=== PATIENT | male | born 1945 | race Caucasian/White ===

== ENCOUNTER 2019-05-21 15:24 | IRF | payer MEDICARE, OTHER, SELFPAY ==
[2019-05-21 15:35] VITALS: BP 144/71; PULSE 86; RESP 19; TEMP 36.8; O2SAT 100; BMI 24.5
--- NOTE | 2019-05-21 15:59 | ADMGEN ---
This patient, Yung Junior, was admitted to [facility] Room 221-02. Patient/family oriented to hospital policies and general routines including ID bracelet, bed and alarms, visiting hours, pain management, procedures, bathroom and other care routines, personal items, smoking policy, room service/diet, and visiting hours. Valuables list has been completed. Information on how to activate the Rapid Response Team has been discussed. Patient/Family are encouraged to report perceived risks to care and to ask questions if they do not understand what they are told or what they should do.
[2019-05-21 18:33] VITALS: PULSE 86; RESP 19; O2SAT 100
[2019-05-21] MEDS: ACETAMINOPHEN 500 MG TABLET 1000 MG PO ×2 (19:10→23:59)
[2019-05-21] MEDS: TAMSULOSIN HCL 0.4 MG CAPSULE PO (19:11)
[2019-05-21 20:23] VITALS: BP 126/68; PULSE 80; RESP 16; TEMP 37.1; O2SAT 98
[2019-05-21] MEDS: NYSTATIN 100,000 UNITS/ML SUSP 5 ML ORAL.SUSP PO (20:32)
[2019-05-21] MEDS: AMLODIPINE BESYLATE 5 MG TABLET PO (20:32)
[2019-05-21] MEDS: buPROPion HCL SR (12HR) 100 MG TABCR PO (20:32)
[2019-05-22 05:42] LABS: Add Urine Microscopic? YES; Appearance Urine Clear (Clear); Bacteria Urine Trace /hpf; Bilirubin Urine Negative (Negative); Blood Urine Negative (Negative); Color Urine Yellow (Yellow); Glucose Urine UA Negative (Negative); Ketones Urine Trace mg/dL (Negative); Leukocyte Esterase Ur Negative LEU/UL (Negative); Mucus Urine Rare /lpf; Nitrate Urine Negative (Negative); Protein Urine Negative (Negative); RBC Urine 0-2 /hpf (0-2); Specific Grav Ur 1.012 (1.001-1.035); Urobilinogen Urine Negative mg/dL (<2.0); WBC Urine 0-3 /hpf
[2019-05-22 05:43] LABS: Basophils Percent Auto 0.4 % (0.2-1.2); Eosinophils Absolute Auto 0.1 K/mm3 (0-0.3); Eosinophils Percent Auto 1.5 % (0-4.4); Hematocrit 37.6 % (42.0-52.0); Hemoglobin 12.3 g/dL (14.0-18.0); Immature Granulocyte Absolute 0.06 K/mm3 (0.00-0.031); Immature Granulocyte Percent A 0.8 % (0-0.5); Lymphocytes Absolute Auto 0.56 K/mm3 (0.9-3.2); Lymphocytes Percent Auto 7.8 % (18.3-44.2); Mean Corpuscular HGB Conc 32.7 g/dl (32-36); Mean Corpuscular Volume 94.7 fl (80-100); Mean Platelet Volume 11.1 fl (7.4-10.4); Monocytes Absolute Auto 0.8 K/mm3 (0.1-0.6); Monocytes Percent Auto 10.5 % (2.6-8.5); Neutrophils Absolute Auto 5.6 K/mm3 (1.3-6.7); Platelet Count Result 230 k/mm3 (150-375); Red Blood Count 3.97 M/mm3 (4.6-6.20); Red Cell Distribution Width 14.4 % (11.5-14.5); White Blood Count 7.2 K/mm3 (4.5-10.0)
[2019-05-22 05:58] LABS: Blood Urea Nitrogen 28 mg/dL (9-20); Calcium 8.1 mg/dL (8.4-10.2); Carbon Dioxide 24 mmol/L (22-30); Chloride 100 mmol/L (98-107); Estimated CRCL calculation 57 ml/min; Estimated Glomerular Filt Rate 60; Glucose 78 mg/dL (75-110); Potassium 3.5 mmol/L (3.4-5.0); Sodium 135 mmol/L (137-145)
[2019-05-22 06:00] VITALS: BP 135/76; PULSE 87; RESP 18; TEMP 36.4; O2SAT 92
[2019-05-22] MEDS: ACETAMINOPHEN 500 MG TABLET 1000 MG PO ×2 (06:12→12:34)
[2019-05-22] MEDS: LEVOTHYROXINE SODIUM 50 MCG TABLET PO (06:12)
[2019-05-22] MEDS: FUROSEMIDE 20 MG TABLET 60 MG PO (09:46)
[2019-05-22] MEDS: ENOXAPARIN 40 MG/0.4 ML SYRINGE SUB-Q (09:46)
[2019-05-22] MEDS: COLCHICINE 0.6 MG TABLET PO (09:46)
[2019-05-22] MEDS: buPROPion HCL SR (12HR) 100 MG TABCR PO ×2 (09:46→21:34)
[2019-05-22 09:47] VITALS: PULSE 86
[2019-05-22] MEDS: ASPIRIN 81 MG ENTERIC TABLET PO (09:47)
[2019-05-22] MEDS: LOSARTAN POTASSIUM 100 MG TABLET PO (09:47)
[2019-05-22] MEDS: predniSONE 10 MG TABLET PO (09:47)
[2019-05-22] MEDS: CLOPIDOGREL BISULFATE 75 MG TABLET PO (09:47)
[2019-05-22] MEDS: polyethylene glycoL 3350 17 GM POWD.PACK PO (09:47)
[2019-05-22] MEDS: METOPROLOL SUCCINATE EXT REL 100 MG TABCR PO (09:47)
[2019-05-22] MEDS: NYSTATIN 100,000 UNITS/ML SUSP 5 ML ORAL.SUSP PO ×4 (09:47→21:32)
[2019-05-22] MEDS: allopurinoL 50 MG TABLET PO (09:47)
[2019-05-22] MEDS: DOCUSATE SODIUM 100 MG CAPSULE PO (12:34)
[2019-05-22 14:00] VITALS: BP 137/71; PULSE 92; RESP 18; TEMP 36.2; O2SAT 97
--- NOTE | 2019-05-22 15:07 | PC.NURSE ---
Patient states Bosulif is his leukemia medication. He states he will not be taking it while hospitalized. His spouse did not bring in this medication and it is now stopped as per Dr. Cochran and patient.
--- NOTE | 2019-05-22 15:50 | WPDREHABHP ---
H&P: HPI History of Present Illness Chief complaint: Lumbar stenosis with neurogenic claudecation Narrative: Yung Junior is a 73 year old male HISTORY OF PRESENT ILLNESS: The patient's primary rehab impairment category is neurological condition The etiologic diagnosis is lumbar stenosis with neurogenic claudication I saw this patient [id number] on May 22, 2019 at 1:00 p.m. 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 On May 14, 2019 he underwent an L3-L5 segmental spinal instrumentation, L3-L4 synovial cyst and complete right-sided L4-L5 facetectomy and drain placement with doctor Shi. Is spinal precautions are in place. His drains have been removed. His aspirin and Plavix is being held for 1 week postop. Postoperatively the patient has experienced an acute onset of confusion and agitation thought to be secondary to a peripherally stopping his long-term prednisone for 30 years, oral thrush swish and swallow treatment ordered, urinary retention catheter placed and still remain in place for 2 weeks. He was placed back on his home dose of prednisone 10 milligram every morning he is alert and oriented x4 presently he also experienced an acute gout flare and colchicine was added to his home medication of allopurinol Therapy was initiated at the acute care facility and the patient transferred to us from [facility] on May 21, 2019 FALLS OR SURGERIES: The patient has had major surgeries in the 100 days prior to admission. They had falls in the past year. They had falls with injury in the past year. PAST MEDICAL HISTORY: bone marrow transplant complications, coronary artery disease, chronic kidney disease, chronic myelocytic leukemia, deep vein thrombosis, depression, edema, gastroesophageal reflux disease, gout, amaiq-injsfe-cwwt disease, cerebrovascular accident, hiatal hernia, scleroderma, stomach ulcers, hypercholesterolemia, hypertension, hypothyroidism, myalgia, peripheral arterial disease, ptosis right eyelid long-standing, Raynaud phenomenon, spinal stenosis of lumbar region with neurogenic claudication, came in therapy chemotherapy use, status post radiation therapy. PAST SURGICAL HISTORY: Appendectomy, bone marrow transplant 30 years ago, cardiac catheterization, coronary artery disease with angioplasty stent placement, parotidectomy, posterior laminectomy/ decompression lumbar spine prior to present surgery SOCIAL HISTORY: patient lives with his was present at the time of the interview in a 1 level home with the basement. There are 3 steps to enter. He was independent with functional transfers and ambulation prior with no assistive device. He was limited on the amount of time he quit spent due to his lumbar stenosis and neurogenic claudication. He was able to manage by taking frequent rest stops. He did need assistance with buttons due to his gouty tophi. His was present when the screen was performed and she will be available to assist him following inpatient rehab if needed. He reported no falls and he did have a major spinal surgery this admission and also roughly over a year ago FAMILY HISTORY: mother with atrial fibrillation, father with heart disease, father also has hypertension stroke cancer diabetes sister with breast cancer and TTP PRIOR LEVEL OF FUNCTION: Eating was INDEPENDENT Oral Care was INDEPENDENT Toileting Hygiene was INDEPENDENT Shower/Bathing was INDEPENDENT Upper Body Dressing was supervision or touching assistance Lower Body Dressing was supervision or touching ass
--- NOTE | 2019-05-22 16:03 | PHAR ---
Per Dr. Cochran and Patient, home medication was brought in via patient's spouse (Salina). Patient receives Testosterone each Friday, IM. Home medication has been approved by Dr. Cochran. DRUGDEX Evaluations: TESTOSTERONE Regulatory-Status: Schedule III Active-Ingredient: Testosterone Cypionate - 200 MG/ML Excipients: Benzyl Alcohol 9.45 MG/ML Benzyl Benzoate 0.2 ML/ML Cottonseed Oil 560 MG/ML Availability: [place] Yxbwheirw-Qnezltacj-Pqla: 10 ML Vial, package of 1 Contact: [employer] [facility] Product ID: [id number] - 04/08 [facility] Code: [id number] - Androgens Registry Number: [id number] Form: Intramuscular Oil
[2019-05-22] MEDS: LIDOCAINE HCL 2% VISC SOLN 15 ML UDC PO (17:43)
[2019-05-22] MEDS: TAMSULOSIN HCL 0.4 MG CAPSULE PO (17:43)
[2019-05-22] MEDS: AMLODIPINE BESYLATE 5 MG TABLET PO (21:34)
[2019-05-22 21:44] VITALS: BP 144/79; PULSE 82; RESP 16; TEMP 37.4; O2SAT 97
[2019-05-23 06:00] VITALS: BP 137/73; PULSE 88; RESP 16; TEMP 36.6; O2SAT 98
[2019-05-23] MEDS: LEVOTHYROXINE SODIUM 50 MCG TABLET PO ×2 (06:02→06:04)
[2019-05-23] MEDS: NYSTATIN 100,000 UNITS/ML SUSP 5 ML ORAL.SUSP PO ×4 (09:45→20:48)
[2019-05-23] MEDS: ENOXAPARIN 40 MG/0.4 ML SYRINGE SUB-Q (09:46)
[2019-05-23] MEDS: FUROSEMIDE 20 MG TABLET 60 MG PO (09:46)
[2019-05-23] MEDS: DOCUSATE SODIUM 100 MG CAPSULE PO (09:46)
[2019-05-23] MEDS: CLOPIDOGREL BISULFATE 75 MG TABLET PO (09:47)
[2019-05-23] MEDS: COLCHICINE 0.6 MG TABLET PO (09:47)
[2019-05-23] MEDS: allopurinoL 50 MG TABLET PO (09:49)
[2019-05-23] MEDS: ASPIRIN 81 MG ENTERIC TABLET PO (09:49)
[2019-05-23] MEDS: buPROPion HCL SR (12HR) 100 MG TABCR PO ×2 (09:49→21:45)
[2019-05-23 09:50] VITALS: PULSE 90
[2019-05-23] MEDS: LOSARTAN POTASSIUM 100 MG TABLET PO (09:50)
[2019-05-23] MEDS: predniSONE 10 MG TABLET PO (09:50)
[2019-05-23] MEDS: METOPROLOL SUCCINATE EXT REL 100 MG TABCR PO (09:50)
[2019-05-23] MEDS: LIDOCAINE HCL 2% VISC SOLN 15 ML UDC PO ×2 (09:51→13:45)
--- NOTE | 2019-05-23 13:52 | WPDNEURORHBP ---
Subjective Date/time seen: 05/23/19 13:52 Interval history: this 73-year-old gentleman is here because of having had surgery for lumbar stenosis with neurogenic claudication He has multiple medical issues which have been summarized in my initial history and physical exam Today he is complaining of some dizziness which is most likely related to postural hypotension but he does not want to take Norvasc at this time and we will abide by his wish and see what the blood pressure does Review of Systems Constitutional: Constitutional: Reports no additional constitutional complaints Eyes: Eyes: Reports no additional eye complaints ENT: Reports system reviewed and no additional complaints, except as documented Cardiovascular: Cardiovascular: Reports no additional cardiovascular complaints Respiratory: Respiratory: Reports no additional respiratory complaints Gastrointestinal: Gastrointestinal: Reports no additional gastrointestinal complaints Genitourinary: Genitourinary: Reports no additional male genitourinary complaints Musculoskeletal: Musculoskeletal: Reports no additional musculoskeletal complaints Integumentary/Breasts: Skin/Breast: Reports system reviewed and no additional complaints, except as docu Neurologic: Reports system reviewed and no additional complaints, except as documented Psychiatric: Psychiatric: Reports no additional psychiatric complaints Functional Status Ambulation Ability Ability to Ambulate 10 Feet: Contact Guard Ambulation Assistive Devices: Walker, Wheeled Transfers Ability Ability to Transfer In/Out of Chair: Minimum Assistance X 1 Exam Const: General: comfortable and no acute distress HENMT: General nose exam: Normal nares present Mouth: Yes moist mucous membranes Eyes: General: appearance normal, both eyes and all related structures Other: right-sided ptosis remained the same Neck: Neck: supple and no JVD Resp: Effort & Inspection: normal respiratory effort Auscultation: clear to auscultation bilaterally Cardio: Rate: regular rate Rhythm: regular rhythm GI: GI Palp: Yes Soft to palpation Auscultation: normal bowel sounds Skin: General skin exam: normal color and no rashes or lesions noted Other: this inches and at the lumbar area is clean and healthy Neuro: Other: patient's mental status examination is normal cranial nerve examination is normal is strength is symmetrically decreased particularly in the lower extremities along with the sensory deficit depressed reflexes in the lower extremities consistent with the patient's history of lumbar canal stenosis and surgery Extrem: General: normal to inspection Objective Data Vital Signs Vital Signs: Vital Signs - 24 hr 05/22/19 14:00 05/22/19 21:44 05/23/19 06:00 Temperature 36.2 C L 37.4 C 36.6 C Pulse Rate 92 82 88 Respiratory Rate 18 16 16 Blood Pressure 137/71 144/79 H 137/73 Pulse Oximetry 97 97 98 05/23/19 09:50 Temperature Pulse Rate 90 Respiratory Rate Blood Pressure Pulse Oximetry Intake/Output Intake/Output: Intake & Output 05/20/19 05/21/19 05/22/19 05/23/19 23:59 23:59 23:59 23:59 Intake Total 50 600 580 Output Total 1950 1800 Balance 50 1350 -1220 Meds/Results Medications: Active Medications Generic Name Dose Route Start Last Admin Trade Name Freq PRN Reason Stop Dose Admin Acetaminophen 1,000 mg 05/22/19 15:37 Tylenol Tablet PO 06/12/19 23:59 Q6HR PRN Pain Rated 5 or Less Allopurinol 50 mg 05/22/19 09:00 05/23/19 09:49 Zyloprim PO 50 mg DAILY JENY Administration Aspirin 81 mg 05/22/19 09:00 05/23/19 09:49 Aspirin Ec PO 81 mg DAILY JENY Administration Bupropion HCl 100 mg 05/21/19 21:00 05/23/19 09:49 Wellbutrin-Sr (12hr) PO 100 mg Q12HR JENY Administration Clopidogrel Bisulfate 75 mg 05/22/19 09:00 05/23/19 09:47 Plavix PO 75 mg DAILY JENY Administration Colchicine 0.6 mg 05/22/19 09:00 05/23/19 09:47 C
[2019-05-23 14:00] VITALS: BP 121/73; PULSE 88; RESP 18; TEMP 36.7; O2SAT 97
[2019-05-23] MEDS: TAMSULOSIN HCL 0.4 MG CAPSULE PO (18:04)
[2019-05-23 22:00] VITALS: BP 157/77; PULSE 86; RESP 16; TEMP 36.8; O2SAT 99
[2019-05-24 06:00] VITALS: BP 147/77; PULSE 77; RESP 20; TEMP 36.9; O2SAT 95
[2019-05-24] MEDS: ENOXAPARIN 40 MG/0.4 ML SYRINGE SUB-Q (09:57)
[2019-05-24] MEDS: METOPROLOL SUCCINATE EXT REL 100 MG TABCR PO (09:59)
[2019-05-24] MEDS: predniSONE 10 MG TABLET PO (09:59)
[2019-05-24] MEDS: NYSTATIN 100,000 UNITS/ML SUSP 5 ML ORAL.SUSP PO ×4 (09:59→20:29)
[2019-05-24] MEDS: CLOPIDOGREL BISULFATE 75 MG TABLET PO (09:59)
[2019-05-24] MEDS: COLCHICINE 0.6 MG TABLET PO (10:00)
[2019-05-24] MEDS: DOCUSATE SODIUM 100 MG CAPSULE PO (10:00)
[2019-05-24] MEDS: ASPIRIN 81 MG ENTERIC TABLET PO (10:00)
[2019-05-24] MEDS: allopurinoL 50 MG TABLET PO (10:00)
[2019-05-24] MEDS: FUROSEMIDE 20 MG TABLET 60 MG PO (10:00)
[2019-05-24] MEDS: ERGOCALCIFEROL 50,000 UNIT CAPSULE 50000 UNITS PO (10:01)
[2019-05-24] MEDS: buPROPion HCL SR (12HR) 100 MG TABCR PO ×2 (10:01→20:29)
[2019-05-24] MEDS: LOSARTAN POTASSIUM 100 MG TABLET PO (10:01)
--- NOTE | 2019-05-24 11:51 | RPD ---
INDIVIDUALIZED PLAN OF CARE FOR Yung Junior Brief Synthesis of Pre-Admission Screen, Post-Admission Evaluation and Therapy Evaluations: The patient presents to rehab with lumbar stenosis with neurogenic claudication. Comorbidities include status post posterior spinal fusion with instrumentation, excision of right-sided facet synovial cyst, complete facetectomy of right-sided L4-L5, hypertension, acute gout flare, gouty tophi of the right thumb, acute encephalopathy, long-term steroid use, graft versus host disease, coronary artery disease, chronic kidney disease, chronic myelocytic leukemia, edema, gastroesophageal reflux disease, hiatal hernia, hypothyroidism, peripheral artery disease, Raynaud phenomenon, chronic cytoxin use. The patient requires physician services for medical oversight, management of post-op complications in setting of present comorbidities, and pain management. The patient requires nursing services for anticoagulation therapy, DVT prophylactics, infection protection, medication management and education, pressure relief, and wound care. Deficits include:ADLs, Balance, Cognition, Endurance, Mobility, Pain Management, ROM, Safety, Strength, Transfers In School Suspension Aide/Case Management for: Discharge Planning and Patient/Family Counseling Physical Therapy: 5 days per week for 90 minutes. Treatments may include: Therapeutic Exercise, Gait Training, Neuromuscular Re-education, Transfer Training, Community Reintegration, Bed Mobility, Patient/Family Education, Wheelchair Mobility Group Therapy/Concurrent Therapy Rationales: -Improve attention span during functional activities in a distracted environment. -Enhance problem solving and/or adequate judgment skills during functional activities in a distracted environment. -Promote increased safety awareness in a distracted environment to reduce fall risk with functional tasks, transfers, and ambulation to allow a more safe, self-sufficient return to the home environment. -Improve dynamic balance skills to promote safety and independence with functional activities in a distracted environment for maximum gain. Occupational Therapy: 5 days per week for 90 minutes. Treatments may include: Therapeutic Exercise, Therapeutic Activity, Cognitive Training, Self-Care Transfer Training, Community Reintegration, Home Management, Patient/Family Education, Wheelchair Mobility Training, Energy Conservation Training Group Therapy/Concurrent Therapy Rationales: -Allow therapist to observe and teach generalization and carry-over of skills learned in individual therapy. -Enhance problem solving and sequencing skills during therapeutic activities in a distracted environment. -Promote increased safety awareness in a realistic setting to reduce fall risk with functional tasks due to visual and verbal distractions. -Increase functional level with ADLs, ADL transfers and use of adaptive equipment through therapeutic activities with others while promoting safety to allow a more safe, self-sufficient return home. Medical Prognosis: Good Anticipated Length of Stay: 10 days Rehab Goals: Eating Goal: 06-Independent Oral Hygiene Goal: 06-Independent Toileting Hygiene Goal: 06-Independent Shower/Bathe Self Goal: 05-Setup or Clean Up Assistance Upper Body Dressing Goal: 06-Independent Lower Body Dressing Goal: 06-Independent Putting On/Taking Off Footwear Goal: 06-Independent Rolling Left and Right Goal: 04-Supervision or Touching Assistance Sit to Lying Goal: 06-Independent Lying to Sitting on Side of Bed Goal: 06-Independent Sit to Stand Goal: 06-Independent Chair/Mti-nw-Izrdf Transfer Goal: 06-Independent Toilet Transfer Goal: 06-Independent Car Transfer Goal: 06-Independent Walk 10' Goal: 06-Independent Walk 50' with Two Turns Goal: 06-Independent Walk 150' Goal: 06-Independent Walk 10' on Uneven Surface Goal: 06-Independent 1 Step (Curb) Goal: 06-Independent 4 Steps Goal: 06-Independent 12 Steps Goal Score: 06-I
--- NOTE | 2019-05-24 13:22 | PC.NURSE ---
Dr. Nayak notified of pt. orthostatic. Orders received.
[2019-05-24 13:38] VITALS: BMI 24.5
[2019-05-24 14:27] VITALS: BP 95/61
[2019-05-24 14:35] VITALS: BP 137/77; PULSE 80; RESP 16; TEMP 36.4; O2SAT 98
--- NOTE | 2019-05-24 15:35 | PCPTNOTE ---
Yung Junior was evaluated for a wheeled walker on 05/24/2019 by this physical therapist medical library assistant. The wheeled walker will resolve patient's mobility limitations and will be used for ADL's within the home. The patient can safely use the wheeled walker. ?The wheeled walker will resolve the patient?s mobility deficits, including decreased endurance, lower extremity strength and spinal precautions.
[2019-05-24] MEDS: TAMSULOSIN HCL 0.4 MG CAPSULE PO (17:16)
[2019-05-24 21:58] VITALS: BP 128/69; PULSE 84; RESP 16; TEMP 36.8; O2SAT 98
[2019-05-25] MEDS: LEVOTHYROXINE SODIUM 50 MCG TABLET PO (05:33)
[2019-05-25 06:00] VITALS: BP 145/74; PULSE 78; RESP 16; TEMP 36.5; O2SAT 98
[2019-05-25] MEDS: predniSONE 10 MG TABLET PO (09:24)
[2019-05-25] MEDS: allopurinoL 50 MG TABLET PO (09:24)
[2019-05-25] MEDS: buPROPion HCL SR (12HR) 100 MG TABCR PO ×2 (09:24→20:58)
[2019-05-25] MEDS: ASPIRIN 81 MG ENTERIC TABLET PO (09:24)
[2019-05-25] MEDS: CLOPIDOGREL BISULFATE 75 MG TABLET PO (09:24)
[2019-05-25] MEDS: DOCUSATE SODIUM 100 MG CAPSULE PO (09:25)
[2019-05-25] MEDS: COLCHICINE 0.6 MG TABLET PO (09:25)
[2019-05-25] MEDS: NYSTATIN 100,000 UNITS/ML SUSP 5 ML ORAL.SUSP PO ×4 (09:25→20:58)
[2019-05-25] MEDS: ENOXAPARIN 40 MG/0.4 ML SYRINGE SUB-Q (09:25)
[2019-05-25 11:04] VITALS: BP 95/50
--- NOTE | 2019-05-25 12:34 | WPDNEURORHBP ---
Subjective Date/time seen: 05/25/19 12:34 Interval history: the patient is here for lumbar stenosis followed by lumbar surgery but is having postural hypotension and it needs to be addressed apart from that some of his blood pressure medication have been have been held Patient denies any chest pain shortness of breath nausea vomiting He does become dizzy and lightheaded while the therapy is working and postural hypotension has been document Review of Systems Constitutional: Constitutional: Reports no additional constitutional complaints Comments: patient is hypotensive when he stands up Eyes: Eyes: Reports no additional eye complaints ENT: Reports system reviewed and no additional complaints, except as documented Cardiovascular: Cardiovascular: Reports no additional cardiovascular complaints Respiratory: Respiratory: Reports no additional respiratory complaints Gastrointestinal: Gastrointestinal: Reports no additional gastrointestinal complaints Genitourinary: Genitourinary: Reports no additional male genitourinary complaints Musculoskeletal: Musculoskeletal: Reports no additional musculoskeletal complaints Integumentary/Breasts: Skin/Breast: Reports system reviewed and no additional complaints, except as docu Neurologic: Reports system reviewed and no additional complaints, except as documented Psychiatric: Psychiatric: Reports no additional psychiatric complaints Functional Status Ambulation Ability Ability to Ambulate 10 Feet: Contact Guard Ambulation Assistive Devices: Walker, Wheeled Transfers Ability Ability to Transfer In/Out of Chair: Minimum Assistance X 1 Exam Const: General: comfortable and no acute distress HENMT: General nose exam: Normal nares present Mouth: Yes moist mucous membranes Eyes: General: appearance normal, both eyes and all related structures Neck: Neck: supple and no JVD Resp: Effort & Inspection: normal respiratory effort Auscultation: clear to auscultation bilaterally Cardio: Rate: regular rate Rhythm: regular rhythm GI: GI Palp: Yes Soft to palpation Auscultation: normal bowel sounds Skin: General skin exam: normal color and no rashes or lesions noted Neuro: Other: apart from decreased endurance generalized decrease in the strength and also lower extremities weaker than the upper extremities due to lumbar stenosis post surgery for patient's mental status is normal cranial examination is normal and the right ptosis remains the same He does mention that he had some visual issues after having gait temporal lobe infarct which now has not affected his motor strength Extrem: General: normal to inspection Objective Data Vital Signs Vital Signs: Vital Signs - 24 hr 05/24/19 14:27 05/24/19 14:35 05/24/19 21:58 Temperature 36.4 C L 36.8 C Pulse Rate 80 84 Respiratory Rate 16 16 Blood Pressure 95/61 L 137/77 128/69 Pulse Oximetry 98 98 05/25/19 06:00 Temperature 36.5 C Pulse Rate 78 Respiratory Rate 16 Blood Pressure 145/74 H Pulse Oximetry 98 Intake/Output Intake/Output: Intake & Output 05/22/19 05/23/19 05/24/19 05/25/19 23:59 23:59 23:59 23:59 Intake Total 600 1380 1270 240 Output Total 1950 2550 1500 Balance -1350 -1170 -230 240 Meds/Results Medications: Active Medications Generic Name Dose Route Start Last Admin Trade Name Freq PRN Reason Stop Dose Admin Acetaminophen 1,000 mg 05/22/19 15:37 Tylenol Tablet PO 06/12/19 23:59 Q6HR PRN Pain Rated 5 or Less Allopurinol 50 mg 05/22/19 09:00 05/25/19 09:24 Zyloprim PO 50 mg DAILY JENY Administration Aspirin 81 mg 05/22/19 09:00 05/25/19 09:24 Aspirin Ec PO 81 mg DAILY JENY Administration Bupropion HCl 100 mg 05/21/19 21:00 05/25/19 09:24 Wellbutrin-Sr (12hr) PO 100 mg Q12HR JENY Administration Clopidogrel Bisulfate 75 mg 05/22/19 09:00 05/25/19 09:24 Plavix PO 75 mg DAILY JENY Administration Colchicine 0.6 mg 05/22/19 09:00
[2019-05-25] MEDS: MIDODRINE HCL 2.5 MG TABLET PO ×2 (13:34→18:02)
[2019-05-25 14:00] VITALS: BP 104/61; BP 124/67; BP 92/55; PULSE 108; PULSE 120; PULSE 90; RESP 20; TEMP 36.6; O2SAT 96
[2019-05-25 15:00] VITALS: BP 98/62
[2019-05-25] MEDS: TAMSULOSIN HCL 0.4 MG CAPSULE PO (18:40)
[2019-05-25 20:00] VITALS: BP 144/69
[2019-05-25 22:00] VITALS: BP 144/68; PULSE 96; RESP 20; TEMP 37.1; O2SAT 97
[2019-05-26 05:40] VITALS: BP 154/74; PULSE 87; RESP 20; TEMP 37.2; O2SAT 99
[2019-05-26] MEDS: LEVOTHYROXINE SODIUM 50 MCG TABLET PO (05:48)
[2019-05-26 09:35] VITALS: BP 131/67; O2SAT 98
[2019-05-26] MEDS: NYSTATIN 100,000 UNITS/ML SUSP 5 ML ORAL.SUSP PO ×4 (09:59→20:39)
[2019-05-26] MEDS: COLCHICINE 0.6 MG TABLET PO (10:00)
[2019-05-26] MEDS: FUROSEMIDE 20 MG TABLET 60 MG PO (10:00)
[2019-05-26] MEDS: ASPIRIN 81 MG ENTERIC TABLET PO (10:00)
[2019-05-26] MEDS: predniSONE 10 MG TABLET PO (10:00)
[2019-05-26] MEDS: allopurinoL 50 MG TABLET PO (10:00)
[2019-05-26] MEDS: DOCUSATE SODIUM 100 MG CAPSULE PO (10:00)
[2019-05-26] MEDS: ENOXAPARIN 40 MG/0.4 ML SYRINGE SUB-Q (10:01)
[2019-05-26] MEDS: MIDODRINE HCL 2.5 MG TABLET PO ×3 (10:01→17:31)
[2019-05-26] MEDS: buPROPion HCL SR (12HR) 100 MG TABCR PO ×2 (10:01→20:39)
[2019-05-26] MEDS: CLOPIDOGREL BISULFATE 75 MG TABLET PO (10:02)
--- NOTE | 2019-05-26 10:56 | PCOTNOTE ---
Pt. participated in OT treatment session this A.M. at 09:35 Pt. complaining of severe exhaustion having decreased ability with problem solving and word finding during conversation. Pt only able to tolerate 30 minutes of individual OT services at this time. Pt RN notified and aware.
--- NOTE | 2019-05-26 13:53 | WPDNEURORHBP ---
Subjective Date/time seen: 05/26/19 13:53 Interval history: last evening or night the patient had an encephalopathic attitude however earlier today and later this afternoon he is doing fairly well does not offer any specific complaints his blood pressure is decently controlled with the addition of midodrine and he is able to tolerate the therapy quite well Review of Systems Constitutional: Constitutional: Reports no additional constitutional complaints Eyes: Eyes: Reports no additional eye complaints ENT: Reports system reviewed and no additional complaints, except as documented Cardiovascular: Cardiovascular: Reports no additional cardiovascular complaints Respiratory: Respiratory: Reports no additional respiratory complaints Gastrointestinal: Gastrointestinal: Reports no additional gastrointestinal complaints Genitourinary: Genitourinary: Reports no additional male genitourinary complaints Musculoskeletal: Musculoskeletal: Reports no additional musculoskeletal complaints Integumentary/Breasts: Skin/Breast: Reports system reviewed and no additional complaints, except as docu Neurologic: Reports system reviewed and no additional complaints, except as documented Psychiatric: Psychiatric: Reports no additional psychiatric complaints Functional Status Ambulation Ability Ability to Ambulate 10 Feet: Contact Guard Ability to Ambulate 50 Feet With 2 Turns: Contact Guard Ability to Ambulate 150 Feet: Contact Guard Ambulation Assistive Devices: Walker, Wheeled Transfers Ability Ability to Transfer In/Out of Chair: Minimum Assistance X 1 Exam Const: General: comfortable and no acute distress Other: patient does not recall what exactly transpired last night when he was encephalopathic probably HENMT: General nose exam: Normal nares present Mouth: Yes moist mucous membranes Eyes: General: appearance normal, both eyes and all related structures Other: right-sided ptosis remains the same Neck: Neck: supple and no JVD Resp: Effort & Inspection: normal respiratory effort Auscultation: clear to auscultation bilaterally Cardio: Rate: regular rate Rhythm: regular rhythm GI: GI Palp: Yes Soft to palpation Auscultation: normal bowel sounds Urinary Catheter: Urinary Catheter: patent and draining Neuro: Other: patient's strength in the lower extremities in particular is improving and he does not have lot of pain Extrem: General: normal to inspection Objective Data Vital Signs Vital Signs: Vital Signs - 24 hr 05/25/19 14:00 05/25/19 15:00 05/25/19 20:00 Temperature 36.6 C Pulse Rate 120 H Respiratory Rate 20 Blood Pressure 92/55 L 98/62 L 144/69 H Pulse Oximetry 96 05/25/19 22:00 05/26/19 05:40 05/26/19 09:35 Temperature 37.1 C 37.2 C Pulse Rate 96 87 Respiratory Rate 20 20 Blood Pressure 144/68 H 154/74 H 131/67 Pulse Oximetry 97 99 98 Intake/Output Intake/Output: Intake & Output 05/23/19 05/24/19 05/25/19 05/26/19 23:59 23:59 23:59 23:59 Intake Total 1380 1270 1020 820 Output Total 2550 1500 400 750 Balance -1170 -230 620 70 Meds/Results Medications: Active Medications Generic Name Dose Route Start Last Admin Trade Name Freq PRN Reason Stop Dose Admin Acetaminophen 1,000 mg 05/22/19 15:37 Tylenol Tablet PO 06/12/19 23:59 Q6HR PRN Pain Rated 5 or Less Allopurinol 50 mg 05/22/19 09:00 05/26/19 10:00 Zyloprim PO 50 mg DAILY JENY Administration Aspirin 81 mg 05/22/19 09:00 05/26/19 10:00 Aspirin Ec PO 81 mg DAILY JENY Administration Bupropion HCl 100 mg 05/21/19 21:00 05/26/19 10:01 Wellbutrin-Sr (12hr) PO 100 mg Q12HR JENY Administration Clopidogrel Bisulfate 75 mg 05/22/19 09:00 05/26/19 10:02 Plavix PO 75 mg DAILY JENY Administration Colchicine 0.6 mg 05/22/19 09:00 05/26/19 10:00 Colchicine Po PO 06/21/19 09:01 0.6 mg DAILY JENY Administration Dexamethasone 3 mg 05/21/19 20:22
[2019-05-26 14:00] VITALS: BP 96/59; PULSE 122; RESP 20; TEMP 37.9; O2SAT 97
[2019-05-26 14:00] LABS: Add Urine Microscopic? YES; Appearance Urine Cloudy (Clear); Bacteria Urine Trace /hpf; Bilirubin Urine Negative (Negative); Blood Urine 2+ (Negative); Color Urine Yellow (Yellow); Glucose Urine UA Negative (Negative); Ketones Urine Negative (Negative); Leukocyte Esterase Ur 3+ LEU/UL (Negative); Mucus Urine Rare /lpf; Nitrate Urine Positive (Negative); Protein Urine Negative (Negative); RBC Urine 51-75 /hpf (0-2); Specific Grav Ur 1.012 (1.001-1.035); Urobilinogen Urine Negative mg/dL (<2.0); WBC Urine >75 /hpf
--- NOTE | 2019-05-26 15:08 | PCOTNOTE ---
Attempted to see Pt. for P.M. session this afternoon. Pt. refused to participate in any activities this P.M. Pt. is complaining about not feeling well, running a fever and having test ran. Pt. did not receive full scheduled therapy session this date.
--- NOTE | 2019-05-26 15:38 | PCPTNOTE ---
limited physical therapy treatment this date due to patient not feeling well. patient c/o nausea and just feeling bad . patient had low grade temp in pm and decrease response time all day.
[2019-05-26] MEDS: TAMSULOSIN HCL 0.4 MG CAPSULE PO (17:31)
[2019-05-26 21:34] VITALS: BP 137/72; PULSE 102; RESP 22; TEMP 37.3; O2SAT 96
[2019-05-27] VITALS (9 sets, daily range): BP systolic 66–146; BP diastolic 40–80; PULSE 100–127; RESP 19–20; TEMP 37.1–37.2; O2SAT 94–98
[2019-05-27] MEDS: LEVOTHYROXINE SODIUM 50 MCG TABLET PO (09:17)
[2019-05-27] MEDS: allopurinoL 50 MG TABLET PO (09:17)
[2019-05-27] MEDS: predniSONE 10 MG TABLET PO (09:17)
[2019-05-27] MEDS: ASPIRIN 81 MG ENTERIC TABLET PO (09:17)
[2019-05-27] MEDS: DOCUSATE SODIUM 100 MG CAPSULE PO (09:18)
[2019-05-27] MEDS: CLOPIDOGREL BISULFATE 75 MG TABLET PO (09:18)
[2019-05-27] MEDS: COLCHICINE 0.6 MG TABLET PO (09:18)
[2019-05-27] MEDS: buPROPion HCL SR (12HR) 100 MG TABCR PO ×2 (09:18→20:12)
[2019-05-27] MEDS: MIDODRINE HCL 2.5 MG TABLET PO ×2 (09:19→12:41)
[2019-05-27] MEDS: NYSTATIN 100,000 UNITS/ML SUSP 5 ML ORAL.SUSP PO ×4 (09:19→20:12)
[2019-05-27] MEDS: FUROSEMIDE 20 MG TABLET 60 MG PO (09:19)
[2019-05-27] MEDS: ENOXAPARIN 40 MG/0.4 ML SYRINGE SUB-Q (09:19)
--- NOTE | 2019-05-27 11:51 | WPDNEURORHBP ---
Subjective Date/time seen: 05/27/19 11:51 Interval history: patient is feeling relatively better than yesterday he does have evidence of urinary tract infection and does have a Prince catheter which probably should be removed in the next several days after giving him a bladder training and trying him without the Prince catheter catheter prior to discharge is also hypotensive is symptomatic probably necessitating the increase in ProAmatine Review of Systems Constitutional: Constitutional: Reports no additional constitutional complaints Eyes: Eyes: Reports no additional eye complaints ENT: Reports system reviewed and no additional complaints, except as documented Cardiovascular: Cardiovascular: Reports no additional cardiovascular complaints Respiratory: Respiratory: Reports no additional respiratory complaints Gastrointestinal: Gastrointestinal: Reports no additional gastrointestinal complaints Genitourinary: Genitourinary: Reports no additional male genitourinary complaints Musculoskeletal: Musculoskeletal: Reports no additional musculoskeletal complaints Integumentary/Breasts: Skin/Breast: Reports system reviewed and no additional complaints, except as docu Neurologic: Reports system reviewed and no additional complaints, except as documented Psychiatric: Psychiatric: Reports no additional psychiatric complaints Functional Status Ambulation Ability Ability to Ambulate 10 Feet: Contact Guard Ability to Ambulate 50 Feet With 2 Turns: Contact Guard Ability to Ambulate 150 Feet: Contact Guard Ambulation Assistive Devices: Walker, Wheeled Transfers Ability Ability to Transfer In/Out of Chair: Minimum Assistance X 1 Exam Const: General: comfortable and no acute distress HENMT: General nose exam: Normal nares present Mouth: Yes moist mucous membranes Eyes: General: appearance normal, both eyes and all related structures Neck: Neck: supple and no JVD Resp: Effort & Inspection: normal respiratory effort Auscultation: clear to auscultation bilaterally Cardio: Rate: regular rate Rhythm: regular rhythm GI: GI Palp: Yes Soft to palpation Auscultation: normal bowel sounds Urinary Catheter: Urinary Catheter: patent and draining Back/Spine/Pelvis: Other: the incision from the surgery is clean and healthy Skin: General skin exam: normal color and no rashes or lesions noted Neuro: Other: mental status examination is normal cranial examination is normal generalized weakness is improving he is hypotensive and will need adjustment in his requirement of ProAmatine Extrem: General: normal to inspection Objective Data Vital Signs Vital Signs: Vital Signs - 24 hr 05/26/19 14:00 05/26/19 21:34 05/27/19 06:00 Temperature 37.9 C H 37.3 C 37.2 C Pulse Rate 122 H 102 H 100 Respiratory Rate 20 22 H 20 Blood Pressure 96/59 L 137/72 146/71 H Pulse Oximetry 97 96 94 05/27/19 06:19 05/27/19 06:21 Temperature Pulse Rate Respiratory Rate Blood Pressure 137/72 100/80 Pulse Oximetry Intake/Output Intake/Output: Intake & Output 05/24/19 05/25/19 05/26/19 05/27/19 23:59 23:59 23:59 23:59 Intake Total 1270 1020 1060 540 Output Total 7949 357 1223 550 Balance -230 620 -690 -10 Meds/Results Medications: Active Medications Generic Name Dose Route Start Last Admin Trade Name Freq PRN Reason Stop Dose Admin Acetaminophen 1,000 mg 05/22/19 15:37 Tylenol Tablet PO 06/12/19 23:59 Q6HR PRN Pain Rated 5 or Less Allopurinol 50 mg 05/22/19 09:00 05/27/19 09:17 Zyloprim PO 50 mg DAILY JENY Administration Aspirin 81 mg 05/22/19 09:00 05/27/19 09:17 Aspirin Ec PO 81 mg DAILY JENY Administration Bupropion HCl 100 mg 05/21/19 21:00 05/27/19 09:18 Wellbutrin-Sr (12hr) PO 100 mg Q12HR JENY Administration Clopidogrel Bisulfate 75 mg 05/22/19 09:00 05/27/19 09:18 Plavix PO 75 mg DAILY JENY Administration Colchicine 0.6 mg 05/22/19 09:00 05/27/19 0
[2019-05-27] MEDS: MIDODRINE HCL 2.5 MG TABLET 5 MG PO ×2 (14:32→17:56)
--- NOTE | 2019-05-27 16:39 | PCOTNOTE ---
Patient received limited minutes during morning OT session due to drop in blood pressure upon sitting at side of bed and standing at side of bed. Patient was only willing to try a limited amount of activity. DATA OPERATIONS MANAGER present and charted blood pressures. Patient's RN also aware of all findings.
[2019-05-27] MEDS: TAMSULOSIN HCL 0.4 MG CAPSULE PO (17:56)
[2019-05-28] VITALS (11 sets, daily range): BP systolic 72–146; BP diastolic 41–82; PULSE 103–110; RESP 18–20; TEMP 36.6–36.9; O2SAT 98–100
[2019-05-28] MEDS: LEVOTHYROXINE SODIUM 50 MCG TABLET PO (05:35)
--- NOTE | 2019-05-28 08:17 | ECG_ITS ---
Measurements Intervals [place] Rate: 110 P: 44 W[place]: 147 QRS: -65 QRSD: 115 T: 102 QT: 365 QTc: 494 Interpretive Statements SINUS TACHYCARDIA INCOMPLETE RIGHT BUNDLE BRANCH BLOCK LEFT ANTERIOR FASCICULAR BLOCK LEFT VENTRICULAR HYPERTROPHY AND ST-T CHANGE CONSIDER RIGHT VENTRICULAR HYPERTROPHY ANTEROSEPTAL INFARCT, AGE INDETERMINATE ST-T WAVE ABNORMALITY IN LATERAL LEADS- CONSIDER ISCHEMIA ABNORMAL ECG Electronically Signed On 05-28-2019 16:00:40 MACHINE ASSEMBLER by Otilio Beltran D.O.
[2019-05-28] MEDS: ASPIRIN 81 MG ENTERIC TABLET PO (12:34)
[2019-05-28] MEDS: allopurinoL 50 MG TABLET PO (12:34)
[2019-05-28] MEDS: predniSONE 10 MG TABLET PO (12:35)
[2019-05-28] MEDS: CLOPIDOGREL BISULFATE 75 MG TABLET PO (12:35)
[2019-05-28] MEDS: DOCUSATE SODIUM 100 MG CAPSULE PO (12:36)
[2019-05-28] MEDS: buPROPion HCL SR (12HR) 100 MG TABCR PO ×2 (12:36→20:34)
[2019-05-28] MEDS: COLCHICINE 0.6 MG TABLET PO (12:36)
[2019-05-28] MEDS: FUROSEMIDE 20 MG TABLET 60 MG PO (12:36)
[2019-05-28] MEDS: NYSTATIN 100,000 UNITS/ML SUSP 5 ML ORAL.SUSP PO ×4 (12:37→19:51)
[2019-05-28] MEDS: MIDODRINE HCL 2.5 MG TABLET 5 MG PO ×2 (12:37→14:37)
[2019-05-28] MEDS: ENOXAPARIN 40 MG/0.4 ML SYRINGE SUB-Q (12:37)
--- NOTE | 2019-05-28 13:25 | WPDNEURORHBP ---
Subjective Date/time seen: 05/28/19 13:25 Interval history: patient when he is laying in the bed is quite asymptomatic but does become tachycardiac still hypotensive on the 5 milligram of midodrine 3 times a day Denies any chest pain or shortness of breath Review of Systems Constitutional: Constitutional: Reports no additional constitutional complaints Eyes: Eyes: Reports no additional eye complaints ENT: Reports system reviewed and no additional complaints, except as documented Cardiovascular: Cardiovascular: Reports no additional cardiovascular complaints Respiratory: Respiratory: Reports no additional respiratory complaints Gastrointestinal: Gastrointestinal: Reports no additional gastrointestinal complaints Genitourinary: Genitourinary: Reports no additional male genitourinary complaints Musculoskeletal: Musculoskeletal: Reports no additional musculoskeletal complaints Integumentary/Breasts: Skin/Breast: Reports system reviewed and no additional complaints, except as docu Neurologic: Reports system reviewed and no additional complaints, except as documented Psychiatric: Psychiatric: Reports no additional psychiatric complaints Functional Status Ambulation Ability Ability to Ambulate 10 Feet: Contact Guard Ability to Ambulate 50 Feet With 2 Turns: Contact Guard Ability to Ambulate 150 Feet: Contact Guard Ambulation Assistive Devices: Walker, Wheeled Transfers Ability Ability to Transfer In/Out of Chair: Minimum Assistance X 1 Exam Const: General: comfortable and no acute distress HENMT: General nose exam: Normal nares present Mouth: Yes moist mucous membranes Eyes: General: appearance normal, both eyes and all related structures Neck: Neck: supple and no JVD Resp: Effort & Inspection: normal respiratory effort Auscultation: clear to auscultation bilaterally Cardio: Rate: regular rate Rhythm: regular rhythm Other: tachycardic relatively GI: GI Palp: Yes Soft to palpation Auscultation: normal bowel sounds Skin: General skin exam: normal color and no rashes or lesions noted Neuro: Other: patient's overall is doing better however remains hypertensive and does become tachycardic He does not have any focal or lateralizing focal motor deficit Extrem: General: normal to inspection Objective Data Vital Signs Vital Signs: Vital Signs - 24 hr 05/27/19 14:00 05/27/19 14:06 05/27/19 14:10 Temperature 37.1 C Pulse Rate 106 H 113 H 127 H Respiratory Rate 19 Blood Pressure 143/79 H 129/73 112/51 L Pulse Oximetry 96 97 98 05/27/19 22:00 05/28/19 06:00 05/28/19 08:45 Temperature 37.1 C 36.9 C Pulse Rate 100 108 H Respiratory Rate 19 20 Blood Pressure 144/75 H 146/82 H 72/41 L Pulse Oximetry 97 100 05/28/19 11:05 Temperature Pulse Rate Respiratory Rate Blood Pressure 101/57 L Pulse Oximetry Intake/Output Intake/Output: Intake & Output 05/25/19 05/26/19 05/27/19 05/28/19 23:59 23:59 23:59 23:59 Intake Total 1020 1060 2060 120 Output Total 400 1750 1975 Balance 620 -690 85 120 Meds/Results Medications: Active Medications Generic Name Dose Route Start Last Admin Trade Name Freq PRN Reason Stop Dose Admin Acetaminophen 1,000 mg 05/22/19 15:37 Tylenol Tablet PO 06/12/19 23:59 Q6HR PRN Pain Rated 5 or Less Allopurinol 50 mg 05/22/19 09:00 05/28/19 12:34 Zyloprim PO 50 mg DAILY JENY Administration Aspirin 81 mg 05/22/19 09:00 05/28/19 12:34 Aspirin Ec PO 81 mg DAILY JENY Administration Bupropion HCl 100 mg 05/21/19 21:00 05/28/19 12:36 Wellbutrin-Sr (12hr) PO 100 mg Q12HR JENY Administration Clopidogrel Bisulfate 75 mg 05/22/19 09:00 05/28/19 12:35 Plavix PO 75 mg DAILY JENY Administration Colchicine 0.6 mg 05/22/19 09:00 05/28/19 12:36 Colchicine Po PO 06/21/19 09:01 0.6 mg DAILY JENY Administration Dexamethasone 3 mg 05/21/19 20:22 Dexamethasone Intensol PO BID PRN M
--- NOTE | 2019-05-28 14:12 | PCDIET ---
Nutrition Follow-Up Complete: Nutrition Diagnosis: Suboptimal oral intake related to nausea, decreased appetite as evidenced by patient suspecting weight loss and intakes recorded 65% on average. Nutrition Goals: Intakes >50%, supplement acceptance Goals not met. Patient consumed average of 43% of meals since 05/25/19. Reports has not yet tried Thrive Ice Cream (BID), but is agreeable to try it. Reports taking most of the Ensure Enlive supplements, but feels once daily is adequate and does not want to receive more often. Patient c/o orthostatic hypotension causing nausea. States MD will talk with superintendent drilling today. Last recorded weight is 84.4 kg. Recommend obtaining new weight. Bowel Motility: +BM 05/28/19. Labs Reviewed: No new BMP. Meds Noted: Colchicine, Dexamethasone, Colace, Drisdol, Lasix, Miralax, Prednisone Additional Notes: Lower back incision well approximated. No documented pressure sores. Will continue to monitor with same goals. Nutrition Monitoring and Evaluation: Follow up in 5 days.
[2019-05-28] MEDS: ONDANSETRON HCL ODT 4 MG TABLET PO ×2 (14:39→20:35)
--- NOTE | 2019-05-28 15:31 | PM.CNCAR ---
Assessment and Plan Additional Plan 73-year-old gentleman with coronary artery disease recent back surgery longstanding hypertension now experiencing problematic orthostatic hypotension while on rehab. Review with records indicate the reason for this is almost certainly the more aggressive vaso dilator regimen that he is on in the advancement in his diuretics. I would recommend: Reduce furosemide to baseline dosage. I will hold it for now and hopefully resume it if necessary at 20 mg per day as he stabilizes Eliminate losartan Eliminate midodrine Recommend increasing oral fluids Hopefully as his vaso active drugs are back to baseline he will become less orthostatic and I told the patient and his that some degree of systolic hypertension will need to be tolerated because he is unacceptably orthostatic on the current regimen. The patient states he was noticing his systolic blood sugar to be in the 160 range in the last several months and he was somewhat pushing his PCP to advance his antihypertensives. Will follow him with you as he is in the rehab floor but at this point would like to avoid treating him with midodrine while we are giving him several other vasodilators. History of Present Illness History of Present Illness Consult date/time: Date of service: 05/28/19 15:31 Consult reason: hypotension Reason For Visit: Lumbar stenosis with neurogenic claudecation Narrative: This 73-year-old man that up seeing at the request of the rehab staff because of symptomatic, problematic orthostatic hypotension. The patient is followed by Dr. Roe in our practice with a history of coronary artery disease and previous interventional revascularization. Frustratingly I have not been able to pull up her records in the chart for my personal review. In any event the patient states that he has had numerous coronary stents performed but has been recently stable. He states that a ischemia evaluation was conducted with a cardiac catheterization in November of 2018 to clear him for back surgery. Apparently a nuclear stress test was felt to be abnormal on angiogram was done by Dr. Gay at which time he was told he did not have any significant coronary lesions. He was cleared for back surgery which for some reason just happened recently over at [place]. He had a relatively unremarkable hospital course other than according to the chart some transient mental status deteriorations but then was transferred here about a week ago for rehab and ultimately in hopes of going home. It is been noticed while on rehab that it has significant orthostatic vital sign changes any becomes lightheaded and tachycardic upon arising which has made it difficult for him to participate in rehab activities. Other than that he is not having any specific cardiac symptoms. Upon review of the chart it seems readily apparent that he is on additional antihypertensives as well as a higher dose of diuretics that was his baseline. Is to treat this orthostasis his rehab physicians have started him on midodrine. This morning his orthostatic vital signs were still staying significantly abnormal and this afternoon I have received a consult request to see him. He is laying in bed flat is comfortable in this position is visiting with his and offers no other complaints. His current medical regimen consists of amlodipine, metoprolol, losartan and furosemide 60 mg per day. Previously he was not on losartan and his furosemide dosage was previously 20 mg per day. He states that the ARB was added to his regimen within the last month or [address] Michele because of systolic hypertension Review of Systems Constitutional: Constitutional: Reports weakness Eyes: Eyes: Reports no additional eye complaints ENT: Reports system reviewed and no additional complaints, except as documented Cardiovascular: Cardiovascular: Reports as per HPI Comments: Palpitations upon arising Respiratory: Respiratory: Rep
[2019-05-28] MEDS: TAMSULOSIN HCL 0.4 MG CAPSULE PO (18:16)
[2019-05-29 05:28] LABS: Basophils Percent Auto 0.5 % (0.2-1.2); Eosinophils Absolute Auto 0.1 K/mm3 (0-0.3); Eosinophils Percent Auto 1.3 % (0-4.4); Hematocrit 42.1 % (42.0-52.0); Hemoglobin 13.8 g/dL (14.0-18.0); Immature Granulocyte Absolute 0.17 K/mm3 (0.00-0.031); Immature Granulocyte Percent A 4.4 % (0-0.5); Lymphocytes Absolute Auto 0.46 K/mm3 (0.9-3.2); Lymphocytes Percent Auto 11.9 % (18.3-44.2); Mean Corpuscular HGB Conc 32.8 g/dl (32-36); Mean Corpuscular Hemoglobin 30.4 pg (26-34); Mean Corpuscular Volume 92.7 fl (80-100); Mean Platelet Volume 10.1 fl (7.4-10.4); Monocytes Absolute Auto 0.4 K/mm3 (0.1-0.6); Monocytes Percent Auto 11.4 % (2.6-8.5); Neutrophils Absolute Auto 2.7 K/mm3 (1.3-6.7); Neutrophils Percent Auto 70.5 % (45.5-73.1); Platelet Count Result 421 k/mm3 (150-375); Red Blood Count 4.54 M/mm3 (4.6-6.20); Red Cell Distribution Width 14.4 % (11.5-14.5); White Blood Count 3.9 K/mm3 (4.5-10.0)
[2019-05-29 05:45] LABS: Blood Urea Nitrogen 36 mg/dL (9-20); Calcium 7.9 mg/dL (8.4-10.2); Carbon Dioxide 27 mmol/L (22-30); Chloride 88 mmol/L (98-107); Estimated CRCL calculation 43 ml/min; Estimated Glomerular Filt Rate 43; Glucose 137 mg/dL (75-110); Potassium 3.4 mmol/L (3.4-5.0); Sodium 127 mmol/L (137-145)
[2019-05-29] MEDS: LEVOTHYROXINE SODIUM 50 MCG TABLET PO (06:30)
[2019-05-29 08:00] VITALS: BP 114/76; PULSE 120
[2019-05-29] MEDS: predniSONE 10 MG TABLET PO (09:30)
[2019-05-29] MEDS: allopurinoL 50 MG TABLET PO (09:31)
[2019-05-29] MEDS: ASPIRIN 81 MG ENTERIC TABLET PO (09:31)
[2019-05-29] MEDS: DOCUSATE SODIUM 100 MG CAPSULE PO (09:32)
[2019-05-29] MEDS: CLOPIDOGREL BISULFATE 75 MG TABLET PO (09:32)
[2019-05-29] MEDS: buPROPion HCL SR (12HR) 100 MG TABCR PO ×2 (09:32→21:00)
[2019-05-29] MEDS: COLCHICINE 0.6 MG TABLET PO (09:32)
[2019-05-29] MEDS: NYSTATIN 100,000 UNITS/ML SUSP 5 ML ORAL.SUSP PO ×4 (09:33→21:00)
[2019-05-29] MEDS: ENOXAPARIN 40 MG/0.4 ML SYRINGE SUB-Q (09:33)
--- NOTE | 2019-05-29 09:39 | PM.PNCARD ---
Progress Note: A&P Additional Plan orthostatic hypotension, plan hold metoprolol dose, IV fluids normal saline 500 ml, repeat orthosstaic aftefrwards, when systolic BP > 110 can start lower dose of B-clinton. Subjective Date/time seen: 05/29/19 09:39 No acute events Had no syncope but dizzy on standing last night Dry mouth Review of Systems Review of Systems: Narrative: General: good sleep last night, no chills or fevers Cardiac: No chest pain or palpitations or dizziness/syncope Respiratory: No SOB or cough Abdomen: decreased appetite, no nausea or vomiting or diarrhea Hematologic: No bleeding or easy bruises Exam Narrative: Exam Narrative: General: able to lie flat, no acute distress Respiratory: No chest wall tenderness, equal air entry and expansion, CTAB Cardiovascular: The heart has a regular rate and rhythm without murmur, No JVD. Lower extremities: No lower extremity edema. Warm, no skin lesion or bruises. Good capillary refill. Gastrointestinal: The abdomen is soft, nontender and nondistended with active bowel sounds. Psychiatric: Normal affect and co-operative Neurologic: Alert and oriented. No focal deficits. Speech is clear. No facial drooping Objective Data Vital Signs Vital Signs: Vital Signs - 24 hr 05/28/19 11:05 05/28/19 15:25 05/28/19 20:00 Temperature Pulse Rate 110 H Respiratory Rate Blood Pressure 101/57 L 117/72 141/82 H Pulse Oximetry 99 05/28/19 21:06 05/28/19 21:13 05/28/19 21:20 Temperature 36.6 C Pulse Rate 103 H Respiratory Rate 20 Blood Pressure 141/82 H 99/54 L 77/50 L Pulse Oximetry 98 05/28/19 21:38 05/28/19 21:42 Temperature Pulse Rate Respiratory Rate Blood Pressure 99/54 L 77/50 L Pulse Oximetry Intake/Output Intake/Output: Intake & Output 05/26/19 05/27/19 05/28/19 05/29/19 23:59 23:59 23:59 23:59 Intake Total 1060 2060 640 120 Output Total 1750 3731 357 3581 Balance -690 85 40 -980 Meds/Results Medications: Active Medications Generic Name Dose Route Start Last Admin Trade Name Freq PRN Reason Stop Dose Admin Acetaminophen 1,000 mg 05/22/19 15:37 Tylenol Tablet PO 06/12/19 23:59 Q6HR PRN Pain Rated 5 or Less Allopurinol 50 mg 05/22/19 09:00 05/28/19 12:34 Zyloprim PO 50 mg DAILY JENY Administration Aspirin 81 mg 05/22/19 09:00 05/28/19 12:34 Aspirin Ec PO 81 mg DAILY JENY Administration Bupropion HCl 100 mg 05/21/19 21:00 05/28/19 20:34 Wellbutrin-Sr (12hr) PO 100 mg Q12HR JENY Administration Clopidogrel Bisulfate 75 mg 05/22/19 09:00 05/28/19 12:35 Plavix PO 75 mg DAILY JENY Administration Colchicine 0.6 mg 05/22/19 09:00 05/28/19 12:36 Colchicine Po PO 06/21/19 09:01 0.6 mg DAILY JENY Administration Dexamethasone 3 mg 05/21/19 20:22 Dexamethasone Intensol PO BID PRN MOUTH SORES Docusate Sodium 100 mg 05/22/19 09:00 05/28/19 12:36 Colace Cap PO 100 mg DAILY JENY Administration Enoxaparin Sodium 40 mg 05/22/19 09:00 05/28/19 12:37 Lovenox SUB-Q 40 mg DAILY JENY Administration Ergocalciferol 50,000 unit 05/24/19 09:00 05/24/19 10:01 Drisdol PO 50,000 unit Mo@0900 JENY Administration Sodium Chloride 500 mls @ 500 mls/hr 05/29/19 09:02 Normal Saline Iv IV CONT 05/29/19 10:01 .Q1H ONE Levofloxacin 500 mg 05/27/19 09:00 05/28/19 12:37 Levaquin Tab PO 05/31/19 09:01 500 mg DAILY JENY Administration Levothyroxine Sodium 50 mcg 05/22/19 06:30 05/29/19 06:30 Synthroid PO 50 mcg DAILY@0630 JENY Administration Lidocaine HCl 15 ml 05/23/19 13:49 Lidocaine Hcl Viscous 2% PO 06/02/19 13:48 PRN PRN Oral Pain Metoprolol Succinate 100 mg 05/22/19 09:00 05/24/19 09:59 Toprol Xl PO 100 mg DAILY JENY Administration Nystatin 5 ml 05/21/19 21:00 05/28/19 19:51 Nystatin 100,000 Units/Ml Susp PO 5 ml QID JENY Administrati
[2019-05-29] MEDS: SODIUM CHLORIDE 0.9% IV 500 ML IV CONT (09:43)
--- NOTE | 2019-05-29 12:15 | PC.NURSE ---
Orthostatics after 500 NS completed: laying-129/74 P 97, sitting-114/76 P 120 (he was shaking), standing-114/98 P 119 (shaking). Denies dizziness or lightheadedness.
[2019-05-29 13:09] VITALS: PULSE 103
[2019-05-29] MEDS: METOPROLOL SUCCINATE EXT REL 50 MG TABCR PO (13:09)
[2019-05-29] MEDS: SALINE 0.65% NAS SOLN 44 ML BTL 1 SPRAY NASAL (13:09)
[2019-05-29] MEDS: PHARMACIST COMMUNICATION ORDER 1 EACH XX (13:15)
[2019-05-29 14:00] VITALS: BP 138/77; PULSE 100; RESP 18; TEMP 36.6; O2SAT 98
--- NOTE | 2019-05-29 15:53 | PCPTNOTE ---
Full minutes not met this date due to patient refusal to attempt to get out of bed this afternoon.
[2019-05-29] MEDS: TAMSULOSIN HCL 0.4 MG CAPSULE PO (18:10)
[2019-05-29 22:00] VITALS: BP 143/66; PULSE 80; RESP 18; TEMP 36.8; O2SAT 100
[2019-05-30] MEDS: LEVOTHYROXINE SODIUM 50 MCG TABLET PO (05:24)
[2019-05-30 06:00] VITALS: BP 135/73; PULSE 80; RESP 18; TEMP 36.6; O2SAT 97
[2019-05-30] MEDS: ASPIRIN 81 MG ENTERIC TABLET PO (09:26)
[2019-05-30] MEDS: allopurinoL 50 MG TABLET PO (09:26)
[2019-05-30] MEDS: predniSONE 10 MG TABLET PO (09:26)
[2019-05-30] MEDS: ENOXAPARIN 40 MG/0.4 ML SYRINGE SUB-Q (09:27)
[2019-05-30] MEDS: DOCUSATE SODIUM 100 MG CAPSULE PO (09:27)
[2019-05-30] MEDS: CLOPIDOGREL BISULFATE 75 MG TABLET PO (09:27)
[2019-05-30] MEDS: buPROPion HCL SR (12HR) 100 MG TABCR PO ×2 (09:27→21:45)
[2019-05-30] MEDS: COLCHICINE 0.6 MG TABLET PO (09:27)
[2019-05-30 09:28] VITALS: PULSE 80
[2019-05-30] MEDS: NYSTATIN 100,000 UNITS/ML SUSP 5 ML ORAL.SUSP PO ×4 (09:28→21:45)
[2019-05-30] MEDS: METOPROLOL SUCCINATE EXT REL 50 MG TABCR PO (09:28)
--- NOTE | 2019-05-30 12:49 | WPDNEURORHBP ---
Subjective Date/time seen: 05/30/19 12:49 Functional Status Ambulation Ability Ability to Ambulate 10 Feet: Contact Guard Ability to Ambulate 50 Feet With 2 Turns: Contact Guard Ability to Ambulate 150 Feet: Contact Guard Ambulation Assistive Devices: Walker, Wheeled Transfers Ability Ability to Transfer In/Out of Chair: Minimum Assistance X 1 Exam Narrative: Exam Narrative: recieved fluids yesterday for orthostatis feeling better stil cocerned about low bp Const: General: cooperative, healthy appearing, comfortable and no acute distress Neck: Neck: full ROM Resp: Effort & Inspection: normal respiratory effort Auscultation: clear to auscultation bilaterally Cardio: Rate: regular rate Rhythm: regular rhythm GI: Auscultation: normal bowel sounds Skin: General skin exam: no rashes or lesions noted Neuro: General: patient oriented x3 and CN's II-XI intact bilaterally Speech: normal speech Gait exam (Neuro): Normal gait present Motor exam (neuro): 5/5 motor strength present throughout Psych: Appearance: grossly normal Objective Data Vital Signs Vital Signs: Vital Signs - 24 hr 05/29/19 13:09 05/29/19 14:00 05/29/19 22:00 Temperature 36.6 C 36.8 C Pulse Rate 103 H 100 80 Respiratory Rate 18 18 Blood Pressure 138/77 143/66 H Pulse Oximetry 98 100 05/30/19 06:00 05/30/19 09:28 Temperature 36.6 C Pulse Rate 80 80 Respiratory Rate 18 Blood Pressure 135/73 Pulse Oximetry 97 Intake/Output Intake/Output: Intake & Output 05/27/19 05/28/19 05/29/19 05/30/19 23:59 23:59 23:59 23:59 Intake Total 0 640 760 910 Output Total 2584 479 4980 850 Balance 85 40 -990 60 Meds/Results Medications: Active Medications Generic Name Dose Route Start Last Admin Trade Name Freq PRN Reason Stop Dose Admin Acetaminophen 1,000 mg 05/22/19 15:37 Tylenol Tablet PO 06/12/19 23:59 Q6HR PRN Pain Rated 5 or Less Allopurinol 50 mg 05/22/19 09:00 05/30/19 09:26 Zyloprim PO 50 mg DAILY JENY Administration Aspirin 81 mg 05/22/19 09:00 05/30/19 09:26 Aspirin Ec PO 81 mg DAILY JENY Administration Bupropion HCl 100 mg 05/21/19 21:00 05/30/19 09:27 Wellbutrin-Sr (12hr) PO 100 mg Q12HR JENY Administration Clopidogrel Bisulfate 75 mg 05/22/19 09:00 05/30/19 09:27 Plavix PO 75 mg DAILY JENY Administration Colchicine 0.6 mg 05/22/19 09:00 05/30/19 09:27 Colchicine Po PO 06/21/19 09:01 0.6 mg DAILY JENY Administration Dexamethasone 3 mg 05/21/19 20:22 Dexamethasone Intensol PO BID PRN MOUTH SORES Docusate Sodium 100 mg 05/22/19 09:00 05/30/19 09:27 Colace Cap PO 100 mg DAILY [facility] Administration Enoxaparin Sodium 40 mg 05/22/19 09:00 05/30/19 09:27 Lovenox SUB-Q 40 mg DAILY [facility] Administration Ergocalciferol 50,000 unit 05/24/19 09:00 05/24/19 10:01 Drisdol PO 50,000 unit Mo@0900 [facility] Administration Levofloxacin 500 mg 05/27/19 09:00 05/30/19 09:27 Levaquin Tab PO 05/31/19 09:01 500 mg DAILY [facility] Administration Levothyroxine Sodium 50 mcg 05/22/19 06:30 05/30/19 05:24 Synthroid PO 50 mcg DAILY@0630 JENY Administration Lidocaine HCl 15 ml 05/23/19 13:49 Lidocaine Hcl Viscous 2% PO 06/02/19 13:48 PRN PRN Oral Pain Metoprolol Succinate 50 mg 05/29/19 12:30 05/30/19 09:28 Toprol Xl PO 50 mg QAM JENY Administration Nystatin 5 ml 05/21/19 21:00 05/30/19 12:47 Nystatin 100,000 Units/Ml Susp PO 5 ml QID [facility] Administration Ondansetron HCl 4 mg 05/27/19 15:22 05/28/19 20:35 Zofran Odt PO 4 mg Q6H PRN Administration Nausea And Vomiting Polyethylene Glycol 17 gm 05/22/19 10:26 Miralax PO PRN PRN Constipation Prednisone 10 mg 05/22/19 08:00 05/30/19 09:26 Prednisone PO 10 mg DAILY@0800 JENY Administration Simethicone 80 mg 05/21/19 17:11 Mylicon PO QID PRN Abdominal Distention So
--- NOTE | 2019-05-30 13:45 | PCPTNOTE ---
Full minutes not met this date. Patient unable to tolerate sitting activities at this time due to BP
[2019-05-30 14:00] VITALS: BP 110/69; RESP 18; TEMP 36.7; O2SAT 100
[2019-05-30 14:23] VITALS: BP 109/72; BP 91/61
--- NOTE | 2019-05-30 16:00 | PM.PNCARD ---
Progress Note: A&P Additional Plan orthostatic hypotension, likely related to medication and hypovolemia from poor intake, Hx of CAD, plan decrease metoprolol dose to 25 mg before adding midodrine, cont holding Losartan and amlodipine since supine BP is in normal range. Cont ASA Subjective Date/time seen: 05/30/19 16:00 Interval history: no acute events still feels weak Review of Systems Review of Systems: Narrative: General: good sleep last night, no chills or fevers Cardiac: No chest pain or palpitations or dizziness/syncope Respiratory: No SOB or cough Abdomen: poor appetite, no nausea or vomiting or diarrhea Hematologic: No bleeding or easy bruises Exam Narrative: Exam Narrative: General: able to lie flat, no acute distress Respiratory: No chest wall tenderness, equal air entry and expansion, CTAB Cardiovascular: The heart has a regular rate and rhythm without murmur, No JVD. Lower extremities: No lower extremity edema. Warm, no skin lesion or bruises. Good capillary refill. Gastrointestinal: The abdomen is soft, nontender and nondistended with active bowel sounds. Psychiatric: Normal affect and co-operative Neurologic: Alert and oriented. No focal deficits. Speech is clear. No facial drooping. Objective Data Vital Signs Vital Signs: Vital Signs - 24 hr 05/29/19 22:00 05/30/19 06:00 05/30/19 09:28 Temperature 36.8 C 36.6 C Pulse Rate 80 80 80 Respiratory Rate 18 18 Blood Pressure 143/66 H 135/73 Pulse Oximetry 100 97 05/30/19 14:00 05/30/19 14:23 Temperature 36.7 C Pulse Rate Respiratory Rate 18 Blood Pressure 110/69 109/72 Pulse Oximetry 100 Intake/Output Intake/Output: Intake & Output 05/27/19 05/28/19 05/29/19 05/30/19 23:59 23:59 23:59 23:59 Intake Total 2060 021 163 3082 Output Total 6682 810 1606 850 Balance 85 40 -990 160 Meds/Results Medications: Active Medications Generic Name Dose Route Start Last Admin Trade Name Freq PRN Reason Stop Dose Admin Acetaminophen 1,000 mg 05/22/19 15:37 Tylenol Tablet PO 06/12/19 23:59 Q6HR PRN Pain Rated 5 or Less Allopurinol 50 mg 05/22/19 09:00 05/30/19 09:26 Zyloprim PO 50 mg DAILY JENY Administration Aspirin 81 mg 05/22/19 09:00 05/30/19 09:26 Aspirin Ec PO 81 mg DAILY [facility] Administration Bupropion HCl 100 mg 05/21/19 21:00 05/30/19 09:27 Wellbutrin-Sr (12hr) PO 100 mg Q12HR JENY Administration Clopidogrel Bisulfate 75 mg 05/22/19 09:00 05/30/19 09:27 Plavix PO 75 mg DAILY [facility] Administration Colchicine 0.6 mg 05/22/19 09:00 05/30/19 09:27 Colchicine Po PO 06/21/19 09:01 0.6 mg DAILY [facility] Administration Dexamethasone 3 mg 05/21/19 20:22 Dexamethasone Intensol PO BID PRN MOUTH SORES Docusate Sodium 100 mg 05/22/19 09:00 05/30/19 09:27 Colace Cap PO 100 mg DAILY [facility] Administration Enoxaparin Sodium 40 mg 05/22/19 09:00 05/30/19 09:27 Lovenox SUB-Q 40 mg DAILY [facility] Administration Ergocalciferol 50,000 unit 05/24/19 09:00 05/24/19 10:01 Drisdol PO 50,000 unit Mo@0900 [facility] Administration Levofloxacin 500 mg 05/27/19 09:00 05/30/19 09:27 Levaquin Tab PO 05/31/19 09:01 500 mg DAILY [facility] Administration Levothyroxine Sodium 50 mcg 05/22/19 06:30 05/30/19 05:24 Synthroid PO 50 mcg DAILY@0630 [facility] Administration Lidocaine HCl 15 ml 05/23/19 13:49 Lidocaine Hcl Viscous 2% PO 06/02/19 13:48 PRN PRN Oral Pain Metoprolol Succinate 50 mg 05/29/19 12:30 05/30/19 09:28 Toprol Xl PO 50 mg QAM [facility] Administration Nystatin 5 ml 05/21/19 21:00 05/30/19 12:47 Nystatin 100,000 Units/Ml Susp PO 5 ml QID JENY Administration Ondansetron HCl 4 mg 05/27/19 15:22 05/28/19 20:35 Zofran Odt PO 4 mg Q6H PRN Administration Nausea And Vomiting Polyethylene Glycol 17 gm 01/25/20 10:26 Miralax PO PRN PRN Constipation Predn
[2019-05-30] MEDS: TAMSULOSIN HCL 0.4 MG CAPSULE PO (18:10)
[2019-05-30 22:21] VITALS: BP 133/73; PULSE 85; RESP 18; TEMP 36.9; O2SAT 95
[2019-05-31] VITALS (11 sets, daily range): BP systolic 84–144; BP diastolic 49–77; PULSE 77–96; RESP 16–20; TEMP 36.4–36.6; O2SAT 90–98
[2019-05-31] MEDS: LEVOTHYROXINE SODIUM 50 MCG TABLET PO (06:33)
[2019-05-31] MEDS: predniSONE 10 MG TABLET PO (09:06)
[2019-05-31] MEDS: buPROPion HCL SR (12HR) 100 MG TABCR PO ×2 (09:07→20:53)
[2019-05-31] MEDS: allopurinoL 50 MG TABLET PO (09:07)
[2019-05-31] MEDS: ASPIRIN 81 MG ENTERIC TABLET PO (09:07)
[2019-05-31] MEDS: CLOPIDOGREL BISULFATE 75 MG TABLET PO (09:07)
[2019-05-31] MEDS: COLCHICINE 0.6 MG TABLET PO (09:07)
[2019-05-31] MEDS: ENOXAPARIN 40 MG/0.4 ML SYRINGE SUB-Q (09:08)
[2019-05-31] MEDS: ERGOCALCIFEROL 50,000 UNIT CAPSULE 50000 UNITS PO (09:08)
[2019-05-31] MEDS: DOCUSATE SODIUM 100 MG CAPSULE PO (09:08)
[2019-05-31] MEDS: NYSTATIN 100,000 UNITS/ML SUSP 5 ML ORAL.SUSP PO ×4 (09:09→20:53)
[2019-05-31] MEDS: SALINE 0.65% NAS SOLN 44 ML BTL 1 SPRAY NASAL (09:10)
[2019-05-31] MEDS: METOPROLOL SUCCINATE EXT REL 50 MG TABCR PO (09:12)
--- NOTE | 2019-05-31 11:25 | PCOTNOTE ---
Attempted to see Pt. for A.M. treatment session. Pt. was unable to tolerate full scheduled therapy time this A.M. Pt. c/o flucuating blood pressures, declining several therapeutic activities. Pt. required several supine to sitting edge of the bed, and then lying back down. Pt. refused getting out of bed. Pt. did verbalize he needed to use the restroom but would decline to do so. Pt. did particiapte in UE exercises sitting edge of bed and supine. Pt. was able to participate in 40 minutes of functional therapeutic needs this session. Will attempt again this date to fullfill therapeutic time.
--- NOTE | 2019-05-31 16:28 | PM.PNCARD ---
Progress Note: A&P Assessment and Plan (1) Orthostatic hypotension: Code(s): I95.1 - Orthostatic hypotension Status: Acute Assessment and Plan: Improved after fluids and holding medications. Still orthostatic. Blood pressure at 6:00 a.m. lying 144/69 with heart rate of 71. Sitting 96/59 with a heart rate of 71 and standing 94/69 with a heart rate of 77. States does still have dizziness when stands but denied any lightheadedness or dizziness when he sat up in the chair for 40 minutes this afternoon. Decrease Metoprolol to 25 mg daily. Due to his coronary disease I do not want to completely discontinue beta-clinton. Continue to hold amlodipine, furosemide and losartan. (2) Tachycardia: Code(s): R00.0 - Tachycardia, unspecified Status: Acute Assessment and Plan: Tachycardia resolved with fluids. Encouraged to drink at least 2 L of fluid per day. EF was 55% at the time of his cardiac catheterization last fall. (3) CKD (chronic kidney disease): Code(s): N18.9 - Chronic kidney disease, unspecified Status: Acute Assessment and Plan: Stable (4) CAD (coronary artery disease), [place] coronary artery: Code(s): I25.10 - Atherosclerotic heart disease of [place] coronary artery without angina pectoris Status: Acute Assessment and Plan: No chest discomfort. Continue aspirin and clopidogrel. Additional Plan Plan discussed with Dr. French [id number] Time Spent With Patient Time with patient: less than 15 minutes Subjective Date/time seen: 05/31/19 16:28 Interval history: Follow-up for: Orthostatic hypotension and tachycardia. Date of service: 05/31/2019 Subjective: Able to sit up in the chair for 40 minutes today. Back still gets tired when it is not supported. Denied chest discomfort or shortness of breath. Lightheaded if stands. Was not lightheaded while sitting up in the chair. Review of Systems Constitutional: Constitutional: Reports weakness Eyes: Eyes: Reports no additional eye complaints ENT: Reports Normal hearing present and Reports dizziness Cardiovascular: Cardiovascular: Denies chest pain at rest, Denies chest pain with activity, Denies leg edema, Reports lightheadedness (With standing), Denies palpitations, Denies dyspnea and Denies dyspnea on exertion Respiratory: Respiratory: Denies cough and Denies dyspnea on exertion Gastrointestinal: Gastrointestinal: Denies abdominal pain and Denies nausea Integumentary/Breasts: Skin/Breast: Denies rash Neurologic: Reports dizziness (With standing) and Reports weakness Hematologic/Lymphatic: Hematologic/Lymphatic: Denies easy bruising Exam Const: General: cooperative, comfortable, no acute distress and ill appearing Nutritional Appearance: thin Orientation/consciousness: patient oriented x3 HENMT: Mouth: Yes dry mucous membranes Eyes: Sclera: sclerae normal Pupils: Equal, round and reactive pupils present Neck: Neck: supple and no JVD Resp: Effort & Inspection: normal respiratory effort Auscultation: clear to auscultation bilaterally Cardio: Rate: regular rate Rhythm: regular rhythm Heart sounds: Murmur heart sound present systolic soft and at the left sternal border (Without radiation) GI: Auscultation: normal bowel sounds Urinary Catheter: Urinary Catheter: patent and draining and urine clear Skin: General skin exam: normal color Neuro: Cranial nerves: Yes Equal, round and reactive pupils present Extrem: General: normal to inspection Psych: Appearance: grossly normal Speech and movement: Normal speech and movement present Objective Data Vital Signs Vital Signs: Vital Signs - 24 hr 05/30/19 22:21 05/31/19 06:00 05/31/19 06:05 Temperature 36.9 C 36.6 C Pulse Rate 85 79 Respiratory Rate 18 18 Blood Pressure 133/73 144/69 H 96/59 L Pulse Oximetry 95 97 05/31/19 06:08 05/31/19 08:00 05/31/19 09:01 Temperature 36.6 C Pulse Rate 91 Respiratory Ra
[2019-05-31] MEDS: TAMSULOSIN HCL 0.4 MG CAPSULE PO (17:28)
[2019-06-01] VITALS (8 sets, daily range): BP systolic 90–133; BP diastolic 57–84; PULSE 66–96; RESP 18–20; TEMP 36.3–36.8; O2SAT 96–98
[2019-06-01] MEDS: LEVOTHYROXINE SODIUM 50 MCG TABLET PO (05:52)
[2019-06-01] MEDS: SALINE 0.65% NAS SOLN 44 ML BTL 1 SPRAY NASAL (09:47)
[2019-06-01] MEDS: predniSONE 10 MG TABLET PO (09:48)
[2019-06-01] MEDS: ASPIRIN 81 MG ENTERIC TABLET PO (09:49)
[2019-06-01] MEDS: allopurinoL 50 MG TABLET PO (09:49)
[2019-06-01] MEDS: COLCHICINE 0.6 MG TABLET PO (09:51)
[2019-06-01] MEDS: CLOPIDOGREL BISULFATE 75 MG TABLET PO (09:51)
[2019-06-01] MEDS: DOCUSATE SODIUM 100 MG CAPSULE PO (09:52)
[2019-06-01] MEDS: ENOXAPARIN 40 MG/0.4 ML SYRINGE SUB-Q (09:52)
[2019-06-01] MEDS: METOPROLOL SUCCINATE EXT REL 25 MG TABCR PO (09:55)
--- NOTE | 2019-06-01 10:28 | PM.PNCARD ---
Progress Note: A&P Assessment and Plan (1) Orthostatic hypotension: Code(s): I95.1 - Orthostatic hypotension Status: Acute Assessment and Plan: Improved with IV fluids and holding furosemide, losartan and decreasing Metoprolol succinate. Blood pressure this morning 133/70 with a heart rate of 91 supine, 112/66 with a heart rate of 81 sitting. Lightheaded when stands. Encouraging p.o. fluids. Metoprolol succinate at 25 mg daily. Monitor blood pressure this afternoon. (2) Tachycardia: Code(s): R00.0 - Tachycardia, unspecified Status: Acute Assessment and Plan: Tachycardia resolved with fluids. Encouraged to drink at least 2 L of fluid per day. EF was 55% at the time of his cardiac catheterization last fall. (3) CKD (chronic kidney disease): Code(s): N18.9 - Chronic kidney disease, unspecified Status: Acute Assessment and Plan: Stable (4) CAD (coronary artery disease), [place] coronary artery: Code(s): I25.10 - Atherosclerotic heart disease of [place] coronary artery without angina pectoris Status: Acute Assessment and Plan: No chest discomfort. Continue aspirin and clopidogrel. Additional Plan Anticipating discharge on Friday. Plan discussed with Dr. Fernandez 1030 06/01/2019 Subjective Date/time seen: 06/01/19 10:28 Interval history: Follow-up for: Orthostatic hypotension and tachycardia. Date of service: 06/01/2019 Subjective: No shortness of breath or chest discomfort. Still needs some work on stamina. Lightheaded when stood today. Review of Systems Constitutional: Constitutional: Reports weakness Eyes: Eyes: Reports no additional eye complaints ENT: Reports Normal hearing present and Reports dizziness (With standing) Cardiovascular: Cardiovascular: Denies chest pain at rest, Denies chest pain with activity, Denies leg edema, Reports lightheadedness (With standing), Denies palpitations, Denies dyspnea and Denies dyspnea on exertion Respiratory: Respiratory: Denies cough, Denies dyspnea and Denies dyspnea on exertion Gastrointestinal: Gastrointestinal: Denies abdominal pain and Denies nausea Musculoskeletal: Musculoskeletal: Reports no additional musculoskeletal complaints Integumentary/Breasts: Skin/Breast: Denies rash Neurologic: Reports Normal hearing present, Reports dizziness (With standing) and Reports weakness Endocrine: Endocrine: Reports no additional endocrine complaints and Denies palpitations Hematologic/Lymphatic: Hematologic/Lymphatic: Denies easy bruising Exam Const: General: cooperative, comfortable, no acute distress and ill appearing Nutritional Appearance: thin Orientation/consciousness: patient oriented x3 HENMT: Mouth: Yes dry mucous membranes Eyes: Sclera: sclerae normal Pupils: Equal, round and reactive pupils present Neck: Neck: supple and no JVD Thyroid: thyroid normal Resp: Effort & Inspection: normal respiratory effort Auscultation: clear to auscultation bilaterally Cardio: Rate: regular rate Rhythm: regular rhythm Heart sounds: Murmur heart sound present systolic soft and at the left sternal border (Without radiation) GI: Auscultation: normal bowel sounds Urinary Catheter: Urinary Catheter: patent and draining and urine clear Skin: General skin exam: normal color Neuro: General: patient oriented x3 Cranial nerves: Yes Equal, round and reactive pupils present and Yes Normal hearing present Extrem: General: normal to inspection Psych: Appearance: grossly normal Speech and movement: Normal speech and movement present Objective Data Vital Signs Vital Signs: Vital Signs - 24 hr 05/31/19 11:00 05/31/19 13:00 05/31/19 14:00 Temperature 36.6 C Pulse Rate 87 77 Respiratory Rate 16 Blood Pressure 90/50 L 93/64 L 124/64 Pulse Oximetry 90 05/31/19 20:21 05/31
[2019-06-01] MEDS: buPROPion HCL SR (12HR) 100 MG TABCR PO (10:39)
--- NOTE | 2019-06-01 12:28 | WPDNEURORHBP ---
Subjective Date/time seen: 06/01/19 12:28 Interval history: the case was discussed in the presence of the family member in fact his we will do the bladder training and hopefully discontinue the [place] prior to discharge date of June 04, 2019 Patient is doing fairly well at least in the past 24 to 48 hours while sitting and maintaining his blood pressure without any syncopal episode no chest pain no shortness of breath no headache nausea vomiting or fevers Review of Systems Constitutional: Constitutional: Reports no additional constitutional complaints Eyes: Eyes: Reports no additional eye complaints ENT: Reports system reviewed and no additional complaints, except as documented Cardiovascular: Cardiovascular: Reports no additional cardiovascular complaints Respiratory: Respiratory: Reports no additional respiratory complaints Gastrointestinal: Gastrointestinal: Reports no additional gastrointestinal complaints Genitourinary: Genitourinary: Reports no additional male genitourinary complaints Musculoskeletal: Musculoskeletal: Reports no additional musculoskeletal complaints Integumentary/Breasts: Skin/Breast: Reports system reviewed and no additional complaints, except as docu Neurologic: Comments: patient's is strength and daughters is improving and if it was not because of postural hypotension he will be doing 5 better than what is already doing Psychiatric: Psychiatric: Reports no additional psychiatric complaints Functional Status Ambulation Ability Ability to Ambulate 10 Feet: Contact Guard Ability to Ambulate 50 Feet With 2 Turns: Contact Guard Ability to Ambulate 150 Feet: Contact Guard Ambulation Assistive Devices: Walker, Wheeled Transfers Ability Ability to Transfer In/Out of Chair: Standby Assistance Exam Const: General: comfortable and no acute distress HENMT: General nose exam: Normal nares present Mouth: Yes moist mucous membranes Eyes: General: appearance normal, both eyes and all related structures Neck: Neck: supple and no JVD Resp: Effort & Inspection: normal respiratory effort Auscultation: clear to auscultation bilaterally Cardio: Rate: regular rate Rhythm: regular rhythm GI: GI Palp: Yes Soft to palpation Auscultation: normal bowel sounds Urinary Catheter: Urinary Catheter: patent and draining Skin: General skin exam: normal color and no rashes or lesions noted Neuro: Other: patient's mental status is fairly decent and within the normal range, likewise the cranial examination is also fairly decent and within the normal range is strength is improving endurance is improving Extrem: General: normal to inspection Objective Data Vital Signs Vital Signs: Vital Signs - 24 hr 05/31/19 13:00 05/31/19 14:00 05/31/19 20:21 Temperature 36.6 C 36.5 C Pulse Rate 87 77 86 Respiratory Rate 16 19 Blood Pressure 93/64 L 124/64 133/77 Pulse Oximetry 90 98 05/31/19 22:00 06/01/19 06:00 06/01/19 07:37 Temperature 36.4 C L 36.4 C L Pulse Rate 96 96 Respiratory Rate 20 20 Blood Pressure 133/70 133/70 133/70 Pulse Oximetry 98 98 06/01/19 07:38 06/01/19 08:00 06/01/19 09:55 Temperature Pulse Rate 96 Respiratory Rate Blood Pressure 112/66 90/69 L Pulse Oximetry Intake/Output Intake/Output: Intake & Output 05/29/19 05/30/19 05/31/19 06/01/19 23:59 23:59 23:59 23:59 Intake Total 760 1570 1210 640 Output Total 1750 1500 1600 1650 Balance -990 70 -390 -1010 Meds/Results Medications: Active Medications Generic Name Dose Route Start Last Admin Trade Name Freq PRN Reason Stop Dose Admin Acetaminophen 1,000 mg 05/22/19 15:37 Tylenol Tablet PO 06/12/19 23:59 Q6HR PRN Pain Rated 5 or Less Allopurinol 50 mg 05/22/19 09:00 06/01/19 09:49 Zyloprim PO 50 mg DAILY JENY Administration Aspirin 81 mg 05/22/19 09:00 06/01/19 09:49 Aspirin Ec PO 81 mg DAILY [facility]ENY Administration Bupropion HCl 100 mg 05/21/19 21:00
[2019-06-01] MEDS: TAMSULOSIN HCL 0.4 MG CAPSULE PO (20:45)
[2019-06-02] MEDS: LEVOTHYROXINE SODIUM 50 MCG TABLET PO (05:30)
[2019-06-02 05:59] VITALS: BP 131/34; PULSE 77; RESP 18; TEMP 36.8; O2SAT 98
[2019-06-02] MEDS: ONDANSETRON HCL ODT 4 MG TABLET PO (09:13)
[2019-06-02] MEDS: buPROPion HCL SR (12HR) 100 MG TABCR 200 MG PO (09:15)
[2019-06-02] MEDS: ASPIRIN 81 MG ENTERIC TABLET PO (09:17)
[2019-06-02] MEDS: allopurinoL 50 MG TABLET PO (09:17)
[2019-06-02] MEDS: DOCUSATE SODIUM 100 MG CAPSULE PO (09:17)
[2019-06-02] MEDS: CLOPIDOGREL BISULFATE 75 MG TABLET PO (09:17)
[2019-06-02] MEDS: ENOXAPARIN 40 MG/0.4 ML SYRINGE SUB-Q (09:17)
[2019-06-02] MEDS: COLCHICINE 0.6 MG TABLET PO (09:17)
[2019-06-02 09:18] VITALS: PULSE 84
[2019-06-02] MEDS: METOPROLOL SUCCINATE EXT REL 25 MG TABCR PO (09:18)
[2019-06-02] MEDS: predniSONE 10 MG TABLET PO (10:20)
--- NOTE | 2019-06-02 12:03 | WPDNEURORHBP ---
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 however he also has underlying chronic myeloid leukemia status post transplant Today his complaining of little tiredness and fatigue however overall status is improving denies any chest pain or shortness of breath headache nausea vomiting fevers chills or sore throat Review of Systems Constitutional: Constitutional: Reports no additional constitutional complaints Eyes: Eyes: Reports no additional eye complaints ENT: Reports system reviewed and no additional complaints, except as documented Cardiovascular: Cardiovascular: Reports no additional cardiovascular complaints Respiratory: Respiratory: Reports no additional respiratory complaints Gastrointestinal: Gastrointestinal: Reports no additional gastrointestinal complaints Genitourinary: Genitourinary: Reports no additional male genitourinary complaints Musculoskeletal: Musculoskeletal: Reports no additional musculoskeletal complaints Integumentary/Breasts: Skin/Breast: Reports system reviewed and no additional complaints, except as docu Neurologic: Reports system reviewed and no additional complaints, except as documented Psychiatric: Psychiatric: Reports no additional psychiatric complaints Functional Status Ambulation Ability Ability to Ambulate 10 Feet: Contact Guard Ability to Ambulate 50 Feet With 2 Turns: Contact Guard Ability to Ambulate 150 Feet: Contact Guard Ambulation Assistive Devices: Walker, Wheeled Transfers Ability Ability to Transfer In/Out of Chair: Standby Assistance Exam Const: General: comfortable and no acute distress HENMT: General nose exam: Normal nares present Mouth: Yes moist mucous membranes Eyes: General: appearance normal, both eyes and all related structures Neck: Neck: supple and no JVD Resp: Effort & Inspection: normal respiratory effort Auscultation: clear to auscultation bilaterally Cardio: Rate: regular rate Rhythm: regular rhythm GI: GI Palp: Yes Soft to palpation Auscultation: normal bowel sounds Skin: General skin exam: normal color and no rashes or lesions noted Neuro: Other: patient does have occasional sundowning however during the day remains alert and well oriented time place and person apart from having generalized weakness and fatigue and tiredness related to multiple medical issues the patient does not have any lateralizing focal motor or sensory deficit He does have evidence of neuropathy of long-standing multiple medical issues he has suffered from Overall he is improving and engage in therapy Objective Data Vital Signs Vital Signs: Vital Signs - 24 hr 06/01/19 14:00 06/01/19 22:00 06/02/19 05:59 Temperature 36.3 C L 36.8 C 36.8 C Pulse Rate 66 77 77 Respiratory Rate 18 18 18 Blood Pressure 106/84 131/74 131/34 L Pulse Oximetry 96 98 98 06/02/19 09:18 Temperature Pulse Rate 84 Respiratory Rate Blood Pressure Pulse Oximetry Intake/Output Intake/Output: Intake & Output 05/30/19 05/31/19 06/01/19 06/02/19 23:59 23:59 23:59 23:59 Intake Total 1570 1210 1160 540 Output Total 1500 1600 2100 550 Balance 70 -390 -940 -10 Meds/Results Medications: Active Medications Generic Name Dose Route Start Last Admin Trade Name Freq PRN Reason Stop Dose Admin Acetaminophen 1,000 mg 05/22/19 15:37 Tylenol Tablet PO 06/12/19 23:59 Q6HR PRN Pain Rated 5 or Less Allopurinol 50 mg 05/22/19 09:00 06/02/19 09:17 Zyloprim PO 50 mg DAILY JENY Administration Aspirin 81 mg 05/22/19 09:00 06/02/19 09:17 Aspirin Ec PO 81 mg DAILY [facility] Administration Bupropion HCl 200 mg 06/02/19 09:00 06/02/19 09:15 Wellbutrin-Sr (12hr) PO 200 mg DAILY JENY Administration Clopidogrel Bisulfate 75 mg 05/22/19 09:00 06/02/19 09:17 Plavix PO 75 mg DAILY [facility] Administration Colchicine 0.6 mg 05/22/19 09:
--- NOTE | 2019-06-02 12:40 | PCDIET ---
Nutrition Follow-Up Complete: Suboptimal oral intake related to nausea, decreased appetite as evidenced by patient suspecting weight loss and intakes recorded 65% on average. Intakes >50%, supplement acceptance Goal not met. Patient's average meal consumption is 44.9% since 05/28. Has been drinking the Ensure Enlive but not the Thrive ice cream. Nutrition recommendation: Current diet order appropriate. Recommend keeping Enlive 1x/day. Patient requests to stop order of Thrive. Last recorded weight is 84.4 kg. Bowel Motility:+BM 05/29 Labs Reviewed:Na(127), K(3.4), Glu (137), Hgb (13.8) Meds Noted: Zofran, miralax, Colace, Lovenox Additional Notes: Patient states that nausea has lessened since admission but is still present. Pt and state appetite is low but is has increased since admission. Pt's has been brining Muscle Milk to the patient everyday to help increase caloric intake and meet needs; reason why they request Thrive stop being sent. Follow up in 5 days.
--- NOTE | 2019-06-02 13:35 | PCNSR ---
On 06/02/19, the student, Kelsey Barrett, provided care and completed [employer] documentation on this patient. I have reviewed the student's documentation and agree with the findings. Recommend K+ replacement as needed/indicated.
[2019-06-02] MEDS: NYSTATIN 100,000 UNITS/ML SUSP 5 ML ORAL.SUSP PO ×3 (13:52→20:04)
[2019-06-02 14:00] VITALS: BP 164/76; PULSE 81; RESP 19; TEMP 36.6; O2SAT 100
[2019-06-02 15:14] VITALS: BP 122/85; BP 96/69; PULSE 104; PULSE 112
[2019-06-02] MEDS: TAMSULOSIN HCL 0.4 MG CAPSULE PO (17:56)
[2019-06-02 20:00] VITALS: BP 144/68
[2019-06-02 21:28] VITALS: BP 144/68; PULSE 47; RESP 18; TEMP 36.8; O2SAT 93
[2019-06-03] VITALS (9 sets, daily range): BP systolic 75–153; BP diastolic 51–75; PULSE 80–99; RESP 18; TEMP 36.4–36.8; O2SAT 91–97
[2019-06-03] MEDS: LEVOTHYROXINE SODIUM 50 MCG TABLET PO (06:01)
[2019-06-03] MEDS: predniSONE 10 MG TABLET PO (08:35)
[2019-06-03] MEDS: allopurinoL 50 MG TABLET PO (08:35)
[2019-06-03] MEDS: ASPIRIN 81 MG ENTERIC TABLET PO (08:35)
[2019-06-03] MEDS: buPROPion HCL SR (12HR) 100 MG TABCR 200 MG PO (08:36)
[2019-06-03] MEDS: DOCUSATE SODIUM 100 MG CAPSULE PO (08:36)
[2019-06-03] MEDS: CLOPIDOGREL BISULFATE 75 MG TABLET PO (08:36)
[2019-06-03] MEDS: COLCHICINE 0.6 MG TABLET PO (08:36)
[2019-06-03] MEDS: ENOXAPARIN 40 MG/0.4 ML SYRINGE SUB-Q (08:37)
[2019-06-03] MEDS: METOPROLOL SUCCINATE EXT REL 25 MG TABCR PO (08:37)
[2019-06-03] MEDS: NYSTATIN 100,000 UNITS/ML SUSP 5 ML ORAL.SUSP PO ×4 (08:37→20:06)
[2019-06-03] MEDS: polyethylene glycoL 3350 17 GM POWD.PACK PO (09:03)
--- NOTE | 2019-06-03 10:43 | WPDNEURORHBP ---
Subjective Date/time seen: 06/03/19 10:43 Interval history: patient is doing very well in the rehab he is recuperating after having had surgery for lumbar canal stenosis with neurogenic claudication he is much better and ready to be discharged tomorrow the catheter has been removed this morning we will see whether not he would require it again or else he starts urinating on his own Patient denies any headache fever chills sore throat nausea or vomiting Review of Systems Constitutional: Constitutional: Reports no additional constitutional complaints Eyes: Eyes: Reports no additional eye complaints ENT: Reports system reviewed and no additional complaints, except as documented Cardiovascular: Cardiovascular: Reports no additional cardiovascular complaints Respiratory: Respiratory: Reports no additional respiratory complaints Gastrointestinal: Gastrointestinal: Reports no additional gastrointestinal complaints Genitourinary: Genitourinary: Reports no additional male genitourinary complaints Musculoskeletal: Musculoskeletal: Reports no additional musculoskeletal complaints Integumentary/Breasts: Skin/Breast: Reports system reviewed and no additional complaints, except as docu Neurologic: Reports system reviewed and no additional complaints, except as documented Psychiatric: Psychiatric: Reports no additional psychiatric complaints Functional Status Ambulation Ability Ability to Ambulate 10 Feet: Standby Assistance Ability to Ambulate 50 Feet With 2 Turns: Standby Assistance Ability to Ambulate 150 Feet: Contact Guard Ambulation Assistive Devices: Walker, Wheeled Transfers Ability Ability to Transfer In/Out of Chair: Independent Exam Const: General: comfortable and no acute distress HENMT: General nose exam: Normal nares present Mouth: Yes moist mucous membranes Eyes: General: appearance normal, both eyes and all related structures Neck: Neck: supple and no JVD Resp: Effort & Inspection: normal respiratory effort Auscultation: clear to auscultation bilaterally Cardio: Rate: regular rate Rhythm: regular rhythm GI: GI Palp: Yes Soft to palpation Auscultation: normal bowel sounds Back/Spine/Pelvis: Other: the incision and the back and spine in August is clean and healthy Skin: General skin exam: normal color and no rashes or lesions noted Neuro: Other: patient's strength has generally improved to a degree that he will be able to be discharged tomorrow with a follow-up appointment with the surgeons and the primary care physician Extrem: General: normal to inspection Objective Data Vital Signs Vital Signs: Vital Signs - 24 hr 06/02/19 14:00 06/02/19 15:14 06/02/19 20:00 Temperature 36.6 C Pulse Rate 81 112 H Respiratory Rate 19 Blood Pressure 164/76 H 96/69 L 144/68 H Pulse Oximetry 100 06/02/19 21:28 06/03/19 06:00 06/03/19 08:37 Temperature 36.8 C 36.8 C Pulse Rate 47 L 85 85 Respiratory Rate 18 18 Blood Pressure 144/68 H 131/71 Pulse Oximetry 93 93 Intake/Output Intake/Output: Intake & Output 05/31/19 06/01/19 06/02/19 06/03/19 23:59 23:59 23:59 23:59 Intake Total 1210 1160 1860 790 Output Total 1600 2100 1075 350 Balance -390 -940 785 440 Meds/Results Medications: Active Medications Generic Name Dose Route Start Last Admin Trade Name Freq PRN Reason Stop Dose Admin Acetaminophen 1,000 mg 05/22/19 15:37 Tylenol Tablet PO 06/12/19 23:59 Q6HR PRN Pain Rated 5 or Less Allopurinol 50 mg 05/22/19 09:00 06/03/19 08:35 Zyloprim PO 50 mg DAILY JENY Administration Aspirin 81 mg 05/22/19 09:00 06/03/19 08:35 Aspirin Ec PO 81 mg DAILY JENY Administration Bupropion HCl 200 mg 06/02/19 09:00 06/03/19 08:36 Wellbutrin-Sr (12hr) PO 200 mg DAILY JENY Administration Clopidogrel Bisulfate 75 mg 05/22/19 09:00 06/03/19 08:36 Plavix PO 75 mg DAILY JENY Administration Colchicine 0.6 mg 05/22/19 09:00 06/03/19 08:
--- NOTE | 2019-06-03 12:10 | PM.PNCARD ---
Progress Note: A&P Assessment and Plan (1) Orthostatic hypotension: Code(s): I95.1 - Orthostatic hypotension Status: Acute Assessment and Plan: Improved with fluids and stopping furosemide and valsartan. Metoprolol succinate decreased to 25 mg daily. Better p.o. intake. Still symptomatic but this is also improved. Would not decrease Metoprolol any further. Support hose recommended. Needs to have at least 30-40 mmHg (extra firm) (2) Tachycardia: Code(s): R00.0 - Tachycardia, unspecified Status: Acute Assessment and Plan: Tachycardia resolved with fluids. Encouraged to drink at least 2 L of fluid per day. EF was 55% at the time of his cardiac catheterization last fall. (3) CKD (chronic kidney disease): Code(s): N18.9 - Chronic kidney disease, unspecified Status: Acute Assessment and Plan: Stable Check BMP and CBC in the morning. (4) CAD (coronary artery disease), [place] coronary artery: Code(s): I25.10 - Atherosclerotic heart disease of [place] coronary artery without angina pectoris Status: Acute Assessment and Plan: No chest discomfort. Continue aspirin and clopidogrel. Additional Plan Plan discussed with Dr. Fernandez 1215 06/03/2019 Subjective Date/time seen: 06/03/19 12:10 Interval history: Follow-up for: Orthostatic hypotension and tachycardia. Date of service: 06/03/2019 Subjective: Just back from physical therapy. Vision is a little foggy. Feels needs to lay down. Blood pressure improving. One hundred eight systolic with walking. Did stairs. Up and down 4 steps. Systolic blood pressure did drop. Review of Systems Constitutional: Constitutional: Reports weakness Eyes: Eyes: Reports blurry vision ENT: Reports Normal hearing present and Reports dizziness (With standing) Cardiovascular: Cardiovascular: Denies chest pain at rest, Denies chest pain with activity, Denies leg edema, Reports lightheadedness (With standing), Denies palpitations, Denies dyspnea and Denies dyspnea on exertion Respiratory: Respiratory: Denies cough, Denies dyspnea and Denies dyspnea on exertion Gastrointestinal: Gastrointestinal: Denies abdominal pain and Denies nausea Musculoskeletal: Musculoskeletal: Reports no additional musculoskeletal complaints Integumentary/Breasts: Skin/Breast: Denies rash Neurologic: Reports Normal hearing present, Reports dizziness (With standing) and Reports weakness Endocrine: Endocrine: Reports no additional endocrine complaints and Denies palpitations Hematologic/Lymphatic: Hematologic/Lymphatic: Denies easy bruising Exam Const: General: cooperative, comfortable, no acute distress and ill appearing Nutritional Appearance: thin Orientation/consciousness: patient oriented x3 HENMT: Mouth: Yes dry mucous membranes Eyes: Sclera: sclerae normal Pupils: Equal, round and reactive pupils present Neck: Neck: supple Resp: Effort & Inspection: normal respiratory effort Auscultation: clear to auscultation bilaterally Cardio: Rate: regular rate Rhythm: regular rhythm Heart sounds: Murmur heart sound present systolic soft and at the left sternal border (Without radiation) GI: Auscultation: normal bowel sounds Urinary Catheter: Urinary Catheter: patent and draining and urine clear Skin: General skin exam: normal color Neuro: General: patient oriented x3 Cranial nerves: Yes Normal hearing present Extrem: General: normal to inspection Psych: Appearance: grossly normal Speech and movement: Normal speech and movement present Objective Data Vital Signs Vital Signs: Vital Signs - 24 hr 06/02/19 14:00 06/02/19 15:14 06/02/19 20:00 Temperature 36.6 C Pulse Rate 81 112 H Respiratory Rate 19 Blood Pressure 164/76 H 96/69 L 144/68 H Pulse Oximetry 100 06/02/19 21:28 06/03/19 06:00 0
--- NOTE | 2019-06-03 16:27 | PCCCNOTE ---
On 06/03/19, the student, [Jersey Chowdary ], provided care and completed [facility] documentation on this patient. I have reviewed the student's documentation and agree with the findings.
[2019-06-03] MEDS: TAMSULOSIN HCL 0.4 MG CAPSULE PO (17:33)
[2019-06-04] MEDS: LEVOTHYROXINE SODIUM 50 MCG TABLET PO (05:51)
[2019-06-04 06:00] VITALS: BP 140/72; PULSE 78; RESP 18; TEMP 36.7; O2SAT 98
[2019-06-04 08:00] VITALS: PULSE 78; RESP 18; O2SAT 98
[2019-06-04] MEDS: buPROPion HCL SR (12HR) 100 MG TABCR 200 MG PO (08:51)
[2019-06-04] MEDS: DOCUSATE SODIUM 100 MG CAPSULE PO (08:51)
[2019-06-04] MEDS: allopurinoL 50 MG TABLET PO (08:51)
[2019-06-04 08:52] VITALS: PULSE 78
[2019-06-04] MEDS: ENOXAPARIN 40 MG/0.4 ML SYRINGE SUB-Q (08:52)
[2019-06-04] MEDS: ASPIRIN 81 MG ENTERIC TABLET PO (08:52)
[2019-06-04] MEDS: CLOPIDOGREL BISULFATE 75 MG TABLET PO (08:52)
[2019-06-04] MEDS: COLCHICINE 0.6 MG TABLET PO (08:52)
[2019-06-04] MEDS: METOPROLOL SUCCINATE EXT REL 25 MG TABCR PO (08:52)
[2019-06-04] MEDS: NYSTATIN 100,000 UNITS/ML SUSP 5 ML ORAL.SUSP PO (08:53)
[2019-06-04] MEDS: predniSONE 10 MG TABLET PO (08:54)
--- NOTE | 2019-06-04 11:06 | WPDNEURORHBP ---
Subjective Date/time seen: 06/04/19 11:06 Interval history: Patient has done remarkably well in the rehab and walking several 100 feet does not complain of anything of note particularly denies any headache nausea vomiting chest pain shortness of breath any leg pain or any calf tenderness he is very eager to go home once so does his Review of Systems Constitutional: Constitutional: Reports no additional constitutional complaints Eyes: Eyes: Reports no additional eye complaints ENT: Reports system reviewed and no additional complaints, except as documented Cardiovascular: Cardiovascular: Reports no additional cardiovascular complaints Respiratory: Respiratory: Reports no additional respiratory complaints Gastrointestinal: Gastrointestinal: Reports no additional gastrointestinal complaints Genitourinary: Genitourinary: Reports no additional male genitourinary complaints Musculoskeletal: Musculoskeletal: Reports no additional musculoskeletal complaints Integumentary/Breasts: Skin/Breast: Reports system reviewed and no additional complaints, except as docu Neurologic: Reports system reviewed and no additional complaints, except as documented Psychiatric: Psychiatric: Reports no additional psychiatric complaints Functional Status Ambulation Ability Ability to Ambulate 10 Feet: Standby Assistance Ability to Ambulate 50 Feet With 2 Turns: Standby Assistance Ability to Ambulate 150 Feet: Standby Assistance Ambulation Assistive Devices: Walker, Wheeled Transfers Ability Ability to Transfer In/Out of Chair: Standby Assistance Exam Const: General: comfortable and no acute distress HENMT: General nose exam: Normal nares present Mouth: Yes moist mucous membranes Eyes: Other: the right-sided ptosis remains the same otherwise normal eye examination Neck: Neck: supple and no JVD Resp: Effort & Inspection: normal respiratory effort Auscultation: clear to auscultation bilaterally Cardio: Rate: regular rate Rhythm: regular rhythm GI: GI Palp: Yes Soft to palpation Auscultation: normal bowel sounds Skin: General skin exam: normal color and no rashes or lesions noted Neuro: Other: patient has done remarkably well his strength in the lower extremities in the upper extremity has significantly improved mental status is with normal major likewise the cranial nerve examination also Extrem: General: normal to inspection Objective Data Vital Signs Vital Signs: Vital Signs - 24 hr 06/03/19 11:15 06/03/19 13:15 06/03/19 14:00 Temperature 36.4 C Pulse Rate 80 Respiratory Rate 18 Blood Pressure 75/51 L 105/63 153/75 H Pulse Oximetry 97 91 06/03/19 15:09 06/03/19 15:10 06/03/19 22:00 Temperature 36.6 C Pulse Rate 89 99 80 Respiratory Rate 18 Blood Pressure 116/69 106/64 147/68 H Pulse Oximetry 97 06/04/19 06:00 06/04/19 08:52 Temperature 36.7 C Pulse Rate 78 78 Respiratory Rate 18 Blood Pressure 140/72 Pulse Oximetry 98 Intake/Output Intake/Output: Intake & Output 06/01/19 06/02/19 06/03/19 06/04/19 23:59 23:59 23:59 23:59 Intake Total 1160 1860 1270 Output Total 2100 1075 350 Balance -940 785 920 Meds/Results Medications: Active Medications Generic Name Dose Route Start Last Admin Trade Name Freq PRN Reason Stop Dose Admin Acetaminophen 1,000 mg 05/22/19 15:37 Tylenol Tablet PO 06/12/19 23:59 Q6HR PRN Pain Rated 5 or Less Allopurinol 50 mg 05/22/19 09:00 06/04/19 08:51 Zyloprim PO 50 mg DAILY JENY Administration Aspirin 81 mg 05/22/19 09:00 06/04/19 08:52 Aspirin Ec PO 81 mg DAILY JENY Administration Bupropion HCl 200 mg 06/02/19 09:00 06/04/19 08:51 Wellbutrin-Sr (12hr) PO 200 mg DAILY JENY Administration Clopidogrel Bisulfate 75 mg 05/22/19 09:00 06/04/19 08:52 Plavix PO 75 mg DAILY JENY Administration Colchicine 0.6 mg 05/22/19 09:00 06/04/19 08:52 Colchicine Po PO 06/21/19 09:01 0.6 mg
--- NOTE | 2019-06-04 11:57 | PM.PNCARD ---
Progress Note: A&P Assessment and Plan (1) Orthostatic hypotension: Code(s): I95.1 - Orthostatic hypotension Status: Acute Assessment and Plan: Improved. Continue Metoprolol succinate 25 mg daily ONLY Recommend fluid intake at 1500 cc daily. Encourage fluid intake that contains protein for better healing. Support hose recommended. Needs to have at least 30-40 mmHg (extra firm) (2) Tachycardia: Code(s): R00.0 - Tachycardia, unspecified Status: Acute Assessment and Plan: Tachycardia resolved with fluids. P.o. intake as above EF was 55% at the time of his cardiac catheterization last fall. (3) CKD (chronic kidney disease): Code(s): N18.9 - Chronic kidney disease, unspecified Status: Acute Assessment and Plan: Renal function at baseline. Sodium noted be 127. Will recheck next Friday. (4) CAD (coronary artery disease), [place] coronary artery: Code(s): I25.10 - Atherosclerotic heart disease of [place] coronary artery without angina pectoris Status: Acute Assessment and Plan: No chest discomfort. Continue aspirin and clopidogrel. Additional Plan OK to discharge from a cardiac stand Plan discussed with Dr. French [id number] 06/04/2019 Subjective Date/time seen: 06/04/19 11:57 Interval history: Follow-up for: Orthostatic hypotension and tachycardia. Date of service: 06/04/2019 Subjective: Waiting to go home. Denied chest pain or shortness of breath. Fatigues easily. Still lacks stamina. Some lightheadedness when getting ready this morning. Review of Systems Constitutional: Constitutional: Reports weakness Eyes: Eyes: Reports blurry vision ENT: Reports Normal hearing present and Reports dizziness (With standing) Cardiovascular: Cardiovascular: Denies chest pain at rest, Denies chest pain with activity, Denies leg edema, Reports lightheadedness (With standing), Denies palpitations, Denies dyspnea and Denies dyspnea on exertion Respiratory: Respiratory: Denies cough, Denies dyspnea and Denies dyspnea on exertion Gastrointestinal: Gastrointestinal: Denies abdominal pain and Denies nausea Musculoskeletal: Musculoskeletal: Reports no additional musculoskeletal complaints Integumentary/Breasts: Skin/Breast: Denies rash Neurologic: Reports Normal hearing present, Reports dizziness (With standing) and Reports weakness Endocrine: Endocrine: Reports no additional endocrine complaints and Denies palpitations Hematologic/Lymphatic: Hematologic/Lymphatic: Denies easy bruising Exam Const: General: cooperative, comfortable, no acute distress and ill appearing Nutritional Appearance: thin Orientation/consciousness: patient oriented x3 HENMT: Mouth: Yes dry mucous membranes Eyes: Sclera: sclerae normal Neck: Neck: supple Resp: Effort & Inspection: normal respiratory effort Auscultation: clear to auscultation bilaterally Cardio: Rate: regular rate Rhythm: regular rhythm Heart sounds: Murmur heart sound present systolic soft and at the left sternal border (Without radiation) GI: Auscultation: normal bowel sounds Urinary Catheter: Urinary Catheter: patent and draining and urine clear Skin: General skin exam: normal color Neuro: General: patient oriented x3 Cranial nerves: Yes Normal hearing present Extrem: General: normal to inspection Psych: Appearance: grossly normal Speech and movement: Normal speech and movement present Objective Data Vital Signs Vital Signs: Vital Signs - 24 hr 06/03/19 13:15 06/03/19 14:00 06/03/19 15:09 Temperature 36.4 C Pulse Rate 80 89 Respiratory Rate 18 Blood Pressure 105/63 153/75 H 116/69 Pulse Oximetry 91 06/03/19 15:10 06/03/19 22:00 06/04/19 06:00 Temperature 36.6 C 36.7 C Pulse Rate 99 80 78 Respiratory Rate 18 18 Blood Pressure 106/64 147/68 H 140/72
--- NOTE | 2019-06-04 12:41 | PC.NURSE ---
TOPROL XL 25 MG PO DAILY CALLED INTO [facility] [place] [phone]. CALLED IN FOR ONE MONTH WITH ONE REFILL. UNDER DR. BERGER.
--- NOTE | 2019-06-12 14:42 | PM.DS ---
DS: Diagnosis Admitting Diagnosis Admitting Diagnosis: Spinal stenosis, lumbar region with neurogenic claudication Discharge Diagnosis (1) Thrush: Code(s): B37.0 - Candidal stomatitis Status: Acute (2) Orthostatic hypotension: Code(s): I95.1 - Orthostatic hypotension Status: Acute (3) CAD (coronary artery disease), [place] coronary artery: Code(s): I25.10 - Atherosclerotic heart disease of [place] coronary artery without angina pectoris Status: Acute (4) Tachycardia: Code(s): R00.0 - Tachycardia, unspecified Status: Acute (5) UTI (urinary tract infection): Code(s): N39.0 - Urinary tract infection, site not specified Status: Acute (6) Sundowning: Code(s): F05 - Delirium due to known physiological condition Status: Acute (7) Postural hypotension: Code(s): I95.1 - Orthostatic hypotension Status: Acute (8) S/P lumbar spinal fusion: Code(s): Z98.1 - Arthrodesis status Status: Acute (9) Atherosclerotic heart disease of [place] coronary artery with unspecified angina pectoris: Code(s): I25.119 - Atherosclerotic heart disease of [place] coronary artery with unspecified angina pectoris Status: Acute (10) CKD (chronic kidney disease): Code(s): N18.9 - Chronic kidney disease, unspecified Status: Acute (11) CML (chronic myelocytic leukemia): Code(s): C92.10 - Chronic myeloid leukemia, BCR/ABL-positive, not having achieved remission Status: Acute (12) Carpal tunnel syndrome of right wrist: Code(s): G56.01 - Carpal tunnel syndrome, right upper limb Status: Acute (13) Cerebrovascular accident (CVA) due to embolism of cerebral artery: Code(s): I63.40 - Cerebral infarction due to embolism of unspecified cerebral artery Status: Acute (14) Chronic myeloid leukemia, BCR/ABL-positive, in remission: Code(s): C92.11 - Chronic myeloid leukemia, BCR/ABL-positive, in remission Status: Acute (15) Coronary angioplasty status: Code(s): Z98.61 - Coronary angioplasty status Status: Acute (16) Essential (primary) hypertension: Code(s): I10 - Essential (primary) hypertension Status: Acute (17) Gout, unspecified: Code(s): M10.9 - Gout, unspecified Status: Acute (18) Hypothyroidism (acquired): Code(s): E03.9 - Hypothyroidism, unspecified Status: Acute (19) Major depressive disorder, single episode, unspecified: Code(s): F32.9 - Major depressive disorder, single episode, unspecified Status: Acute (20) Mixed hyperlipidemia: Code(s): E78.2 - Mixed hyperlipidemia Status: Acute (21) Raynaud's syndrome: Code(s): I73.00 - Raynaud's syndrome without gangrene Status: Acute (22) Sicca syndrome: Code(s): M35.00 - Sicca syndrome, unspecified Status: Acute (23) Spinal stenosis of lumbar region: Code(s): M48.061 - Spinal stenosis, lumbar region without neurogenic claudication Status: Acute (24) Systemic sclerosis: Code(s): M34.9 - Systemic sclerosis, unspecified Status: Acute DS: Summary Hospital Course Reason for hospitalization: This 72 wound year old right-handed patient was admitted with past medical history of 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
== END 2019-06-04 12:00 | disposition home health service (06) | DRG 560 ==
PROVIDERS: Admitting Provider Psychiatry & Neurology Neurology; PCP Family Medicine; Visit Provider Psychiatry & Neurology Neurology
DX: Z47.89 Encounter for other orthopedic aftercare (principal); Z94.81 Bone marrow transplant status; C92.11 Chronic myeloid leukemia, BCR/ABL-positive, in remission; F05 Delirium due to known physiological condition; N39.0 Urinary tract infection, site not specified; B37.0 Candidal stomatitis; M48.062 Spinal stenosis, lumbar region with neurogenic claudication; E78.5 Hyperlipidemia, unspecified; E03.9 Hypothyroidism, unspecified; F32.9 Major depressive disorder, single episode, unspecified; G62.9 Polyneuropathy, unspecified; G56.01 Carpal tunnel syndrome, right upper limb; H02.401 Unspecified ptosis of right eyelid; I25.10 Atherosclerotic heart disease of native coronary artery without angina pectoris; I73.00 Raynaud's syndrome without gangrene; I73.9 Peripheral vascular disease, unspecified; I12.9 Hypertensive chronic kidney disease with stage 1 through stage 4 chronic kidney disease, or unspecified chronic kidney disease; I95.1 Orthostatic hypotension; M35.00 Sjogren syndrome, unspecified; M10.9 Gout, unspecified; N18.9 Chronic kidney disease, unspecified; T38.0X6A Underdosing of glucocorticoids and synthetic analogues, initial encounter; R00.0 Tachycardia, unspecified; Z86.718 Personal history of other venous thrombosis and embolism; Z86.73 Personal history of transient ischemic attack (TIA), and cerebral infarction without residual deficits; Z92.3 Personal history of irradiation; Z92.21 Personal history of antineoplastic chemotherapy; Z98.1 Arthrodesis status; Z95.5 Presence of coronary angioplasty implant and graft; Z79.02 Long term (current) use of antithrombotics/antiplatelets; Z79.82 Long term (current) use of aspirin
CPT/HCPCS: 36415; 80048; 81001; 85025; 87077; 87081; 87086; 87088; 87186; 93005; 97110; 97116; 97162; 97166; 97530; 97535; A9270; J1650; J7040; J7512

== ENCOUNTER 2020-02-23 07:57 | Outpatient (CLI) | payer MEDICARE, OTHER, SELFPAY ==
--- NOTE | ~2020-02-23 | US_ITS ---
EXAMINATION: US retroperitoneal duplex ltd DATE: 02/23/2020 08:39 INDICATION: Hypertension. TECHNIQUE: Multiple grayscale, color Doppler, and pulsed Doppler images of the kidneys and renal evita colette were obtained. COMPARISON: None. FINDINGS: The aorta peak systolic velocity is 98 cm/s. The right renal artery peak systolic velocity is 88 cm/s in the proximal segment, 71 cm/s in the mid segment, and 65 cm/s in the distal segment. The left naga al artery peak systolic velocity is 48 cm/s in the proximal segment, 96 cm/s in the mid segment, and 60 cm/s in the distal segment. IMPRESSION: 1. No Doppler evidence of renal artery stenosis. Reviewed, dictated and finalized at location A.
== END 2020-02-23 07:58 | disposition home or self-care (01) ==
PROVIDERS: PCP Family Medicine; Visit Provider Internal Medicine Cardiovascular Disease
DX: I10 Essential (primary) hypertension (principal)
CPT/HCPCS: 93976